=== PATIENT | male | born 1935 | race Caucasian/White ===

== ENCOUNTER 2020-05-13 10:50 | Inpatient (IN) | payer MEDICARE, SELFPAY ==
[2020-05-13] VITALS (9 sets, daily range): BP systolic 119–150; BP diastolic 49–95; PULSE 71–104; RESP 16–39; TEMP 36.7–37.4; O2SAT 93–97
--- NOTE | ~2020-05-13 | XR_ITS ---
EXAMINATION: XR barium swallow modified EXAM DATE: 05/18/2020 13:43 INDICATION: Dysphagia. TECHNIQUE: Modified barium esophagram was performed by myself to administered fluoroscopy, in conjun ction with speech pathologist who administered barium in varying consistencies as per speech patholog ist documentation. This was recorded on tape. The DAP for this procedure was 1.2 Gycm2. FINDINGS: Radiologist present to administer fluoroscopy during procedure. IMPRESSION: Please refer to speech pathologist findings and specific feeding recommendations. Reviewed, dictated and finalized at location A. EMS SUPPORT ENGINEER IMPRESSION: Please refer to speech pathologist findings and specific feeding r ecommendations.
--- NOTE | ~2020-05-13 | US_ITS ---
EXAMINATION: US renal BI DATE: 05/17/2020 16:01 INDICATION: Renal insufficiency TECHNIQUE: Multiple grayscale and Doppler ultrasound images of the kidneys were obtained. COMPARISON: 11/02/2018 FINDINGS: The right kidney measures 10.5 x 6.0 x 4.3 cm. The left kidney measures 11.0 x 5.5 x 6.3 cm . The kidneys demonstrate normal parenchymal echogenicity. There is no hydronephrosis. The bladder is decompressed by Ricks catheter. IMPRESSION: 1. Normal kidneys without hydronephrosis. Reviewed, dictated and finalized at location A. OR INFORMATION SYSTEMS ARCHITECT
--- NOTE | ~2020-05-13 | CT_ITS ---
EXAMINATION: CT abdomen pelvis wo con EXAM DATE: 05/13/2020 12:58 INDICATION: Generalized abdominal pain. TECHNIQUE: Spiral CT of the abdomen and pelvis was performed without contrast. Axial, coronal and s agittal images were reviewed. The dose-length product (DLP) for this examination was 1051.20 mGy-cm. The exposure was tailored according to patient size (auto mA exposure control), and iterative recon struction (ASIR) was used as additional dose reduction technique. Comparison is made to prior examina tion from 11/02/2018, 09/04/2007. FINDINGS: The liver, spleen, adrenal glands and pancreas are unremarkable. There is cholelithiasis w ithin an otherwise unremarkable gallbladder. No evidence of obstructive biliary disease. There is n o nephrolithiasis or hydronephrosis. The prostate is unremarkable. There is a Ricks catheter in the bladder with some mildly dense fluid, could be contrast if patient w as recently injected, or could be blood products. Correlate with urinalysis. Mild diffuse bladder wal l thickening. There is no retroperitoneal or pelvic lymphadenopathy. 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 Moderate scattered aortic arterial sclerosis. Small umbilical and periumbilical fat-containing hernia. The appendix is not positively visualized. There is no pericecal inflammatory change to suggest appe ndicitis. There is small sliding gastroesophageal hiatal hernia. There is expected amount of colon ic stool. No free intraperitoneal gas. There is cardiomegaly. There are no pleural or pericardial effusions. There is left basilar subsegmental atelectasis. There are no osteoblastic or osteolytic lesions identified. Old right rib fractures. IMPRESSION: 1. Dense fluid in bladder. Mild diffuse bladder wall thickening could be acute or chronic cystitis. Correlate with urinalysis. 2. Mildly aneurysmal lower abdominal aorta. Reviewed, dictated and finalized at location B. E AND REGULATOR REPAIRER
--- NOTE | ~2020-05-13 | CT_ITS ---
EXAMINATION: CT brain wo con EXAM DATE: 05/13/2020 12:58 INDICATION: Altered mental status. TECHNIQUE: Spiral CT of the head was performed without contrast. Axial, coronal and sagittal images were reviewed. The dose-length product (DLP) for this examination was 681.00 mGy-cm. The exposure w as tailored according to patient size, and iterative reconstruction (ASIR) was used as additional dos e reduction technique. Comparison is made to prior examination from 08/15/2016. FINDINGS: There is no acute intraparenchymal hemorrhage. No evidence of intraparenchymal brain mass lesion. No evidence of acute infarction. Please note that initial head CT has limited sensitivity f or small or acute infarctions. There our punctate right periventricular and right basal ganglia lacu nighat infarctions. There is moderate periventricular and subcortical hypodensity, nonspecific but prob ably related to small vessel ischemic disease. There is moderate prominence of the sulci and ventri cles related to cerebral atrophy. There is intracranial carotid arteriosclerosis. There are no ext ra-axial collections. There is no mass effect or midline shift. Patient has had bilateral ocular le ns surgery. Soft tissue is unremarkable. The visualized sinuses and mastoid air cells are well aera lucia. IMPRESSION: 1. No acute intracranial findings. 2. Chronic age related findings. 3. 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 Reviewed, dictated and finalized at location B. L COMPANY TRUCK DRIVER
--- NOTE | ~2020-05-13 | XR_ITS ---
EXAMINATION: XR chest 1V portable INDICATION: Altered mental status TECHNIQUE: Portable AP chest at 1148 hours COMPARISON: 11/12/2017 FINDINGS: Linear opacity of the left lung base is consistent with subsegmental atelectasis or scarrin g. No focal airspace opacities are identified. There is no pleural effusion or pneumothorax. Healed b ilateral rib fractures are noted. The cardiomediastinal silhouette is normal. There is advanced osteo arthritis of the shoulders. IMPRESSION: 1. Subsegmental atelectasis or scarring of the left lung base. Reviewed, dictated and finalized at location A. ETCAR MOTORMAN
--- NOTE | ~2020-05-13 | XR_ITS ---
EXAMINATION: XR chest 2V DATE: 05/20/2020 16:52 INDICATION: Atrial fibrillation, hypertension and leukocytosis. TECHNIQUE: frontal and lateral views of the chest were obtained. COMPARISON: Chest radiograph dated 05/13/2020 FINDINGS: Opacities at the bilateral lower lung zones with blunting at the costophrenic angles and posterior spears lci consistent with small bilateral pleural effusions and associated basilar atelectasis and/or pneum onia. No pulmonary edema or pneumothorax. Cardiomegaly. Severe bilateral glenohumeral osteoarthritis. Bridging osteophytes throughout the thoracic spine could be related to either There diffuse idiopath ic skeletal hyperostosis (DISH) or ankylosing spondylitis. IMPRESSION: 1. Small bilateral pleural effusions with bibasilar atelectasis and/or pneumonia. 2. Cardiomegaly. Reviewed, dictated and finalized at location A. AIDE IMPRESSION: 1. Small bilateral pleural effusions with bibasilar atelectasis and/or pneumoni a. 2. Cardiomegaly.
--- NOTE | 2020-05-13 11:16 | ECG_ITS ---
Measurements Intervals [place] Rate: 105 P: [place]: 0 QRS: -11 QRSD: 126 T: 6 QT: 355 QTc: 469 Interpretive Statements SINUS TACHYCARDIA ATRIAL PREMATURE COMPLEX BORDERLINE AV CONDUCTION DELAY RIGHT BUNDLE BRANCH BLOCK BASELINE ARTIFACT- I, II, AVR, AVF, V1-V6 ABNORMAL ECG Electronically Signed On 05-13-2020 11:19:17 REWINDER by Abdulaziz Brown D.O.
[2020-05-13 11:31] LABS: Hematocrit 31.5 % (42.0-52.0); Hemoglobin 10.8 g/dL (14.0-18.0); Mean Corpuscular HGB Conc 34.3 g/dl (32-36); Mean Corpuscular Hemoglobin 34.2 pg (26-34); Mean Corpuscular Volume 99.7 fl (80-100); Mean Platelet Volume 10.5 fl (7.4-10.4); Platelet Count Result 183 k/mm3 (150-375); Red Blood Count 3.16 M/mm3 (4.6-6.20); Red Cell Distribution Width 13.6 % (11.5-14.5); White Blood Count 11.1 K/mm3 (4.5-10.0)
[2020-05-13 11:39] LABS: INR 1.5; Prothrombin Time 18.6 Seconds (11.1-14.7)
[2020-05-13 11:40] LABS: Partial Thromboplastin Time 37.1 SECONDS (22.3-36.8)
[2020-05-13 12:00] LABS: Band Neutrophils Percent 9 % (0-6); Lymphocytes Absolute Manual 1.11 K/mm3 (1.1-4.5); Monocytes Absolute Manual 0.77 K/mm3 (0.1-0.90); Monocytes Percent Manual 7 % (3-9); Neutrophils Absolute Manual 9.21 K/mm3 (1.3-6.7); Neutrophils Percent Manual 74 % (46-73); Platelet Estimate Adequate (Adequate); Total Cells Counted 100
[2020-05-13 12:01] LABS: Alanine Aminotransferase 28 U/L (4-50); Albumin Level 3.5 g/dL (3.5-5.1); Alkaline Phosphatase 72 U/L (38-126); Anion Gap 9 mmol/L (8-16); Aspartate Amino Transferase 112 U/L (17-59); Bilirubin,Total 1.2 mg/dL (0.2-1.3); Blood Urea Nitrogen 36 mg/dL (9-20); Calcium 8.9 mg/dL (8.4-10.2); Carbon Dioxide 22 mmol/L (22-30); Chloride 103 mmol/L (98-107); Estimated Glomerular Filt Rate 38; Glucose 150 mg/dL (75-110); Lactic Acid Reflex 4.7 mmol/L (0.7-2.1); Lipase 12 U/L (23-300); Potassium 4.9 mmol/L (3.4-5.0); Sodium 134 mmol/L (137-145)
[2020-05-13 12:10] LABS: Add Urine Microscopic? YES; RBC Urine >75 /hpf (0-2); WBC Urine >75 /hpf
[2020-05-13] MEDS: LORazepam INJ (*CRX) 2 MG/ML VIAL (12:18)
[2020-05-13 12:21] LABS: Appearance Urine Cloudy (Clear)
[2020-05-13 12:22] LABS: Bilirubin Urine Negative (Negative); Blood Urine 3+ (Negative); Glucose Urine UA 1+ mg/dL (Negative); Ketones Urine Negative (Negative); Leukocyte Esterase Ur 1+ LEU/UL (Negative); Nitrate Urine Negative (Negative); Protein Urine 3+ mg/dL (Negative); Specific Grav Ur 1.016 (1.001-1.035); Urobilinogen Urine Negative mg/dL (<2.0)
--- NOTE | 2020-05-13 12:22 | PC.NURSE ---
vrbo to give pt ativan 1mg ivp x1 per jamil ATKINS
[2020-05-13 12:23] LABS: Color Urine Red (Yellow)
[2020-05-13 12:39] LABS: CRP 33.2 mg/dL (<1.0)
--- NOTE | 2020-05-13 12:46 | ED.AMS ---
HPI - Altered Mental Status General Chief Complaint: Urogenital-Male Stated Complaint: ams Time Seen by Provider: 05/13/20 11:15 Source: RN notes reviewed Mode of arrival: ambulatory Limitations: altered mental status History of Present Illness HPI narrative: An 85-year-old male presents to the emergency department with complaints of altered mental status. On arrival patient was changed to encounter nursing staff noted that his diaper was full of bloody urine. Patient is ANO x0, unable to provide any history. Related Data Home Medications Medication Instructions Recorded Confirmed bimatoprost 0.03 % eye drops 1 drop EACH EYE DAILY 03/26/19 01/14/20 dorzolamide-timolol (PF) 2 %-0.5 % 1 drop EACH EYE Q12H 03/26/19 01/14/20 eye drops in a dropperette multivitamin 1 tablet PO DAILY 03/26/19 01/14/20 polyethylene glycol 3350 17 17 gm PO DAILY 03/26/19 gram/dose oral powder tamsulosin 0.4 mg capsule 0.4 mg PO DAILY 03/26/19 01/14/20 Allergies Allergy/AdvReac Type Severity Reaction Status Date / Time No Known Allergies Allergy Verified 05/13/20 11:31 Review of Systems Review of Systems: ROS unobtainable: Yes unobtainable due to mental status PMFSH Family History Family History Other Family history of arthritis Family history of malignant neoplasm Hypertension Social History Social History Years smoked: 60 Smoking status: Light tobacco smoker Tobacco type: cigars Second hand tobacco smoke exposure: No Alcohol intake: former Substance use: never Gender identity (if verbalized by the patient): Male Exam Narrative: Exam Narrative: GENERAL: Elderly, frail and cachectic appearing male. HEAD: Normocephalic, atraumatic. EYES: PERRLA and EOMI. ENT: Nares clear, no rhinorrhea or epistaxis. Mucous membranes moist. Oropharynx without tonsillar hypertrophy exudate or other lesions. Bilateral TMs pearly de paz nonbulging NECK: Supple. No adenopathy or masses. No carotid bruits or JVD CHEST: Clear to auscultation. No respiratory distress. No wheezes rales or rhonchi, poor quality exam poor respiratory effort HEART: Regular rate and rhythm. No murmur heard. Normal peripheral pulses. ABDOMEN: generalized tenderness with voluntary guarding nondistended, normal active bowel sounds. EXTREMITIES: Normal range of motion. No edema. Ecchymosis noted over the bilateral upper extremities SKIN: Warm, dry, no rash. NEURO: Alert and oriented x0. PSYCH: Clearly altered Course Reevaluation(s) Reevaluation #1: Patient remains to be resting comfortably in his bed. His mentation has not changed. Family is at bedside. They state that he is a little bit worse than usual and his mentation. Time: 13:45 Consultations Consultation #1: Spoke with Tamara nurse practitioner for the urology group. Full details of the patient's presentation, evaluation and work-up were discussed. She states that they are be happy to consult and she will come evaluate the patient soon. Time: 14:00 Consultation #2: Spoke with Renée nurse practitioner for hospitalist service. All details of the patient's presentation and work-up were discussed, she will be admitting the patient. Time: 14:24 Vital Signs Vital signs: Vital Signs Temperature 36.7 C 05/13/20 11:16 Pulse Rate 103 H 05/13/20 11:16 Respiratory Rate 39 H 05/13/20 11:16 Blood Pressure 124/57 L 05/13/20 11:16 Pulse Oximetry 94 05/13/20 11:16 Temperature 36.7 C 05/13/20 11:16 Pulse Rate 88 05/13/20 14:14 Respiratory Rate 16 05/13/20 14:14 Blood Pressure 134/59 L 05/13/20 14:14 Pulse Oximetry 97 05/13/20 14:14 MDM - Altered Mental Status MDM Narrative Medical decision making narrative: In brief this is an 85-year-old male who came into the emergency department with hematuria. He was also found to be altered. Patient was evaluated and work
[2020-05-13 14:46] LABS: Reflex Lactic Acid Yes or No Add Lactic
--- NOTE | 2020-05-13 15:32 | WPDURCON ---
Assessment and Plan Assessment and plan (1) Gross hematuria: Code(s): R31.0 - Gross hematuria Status: Acute Assessment and Plan: Secondary to known prostate cancer/UTI. Continue IV antibiotics, tailor to culture results. Continue CBI until urine clears then wean CBI to off. Will continue to monitor. (2) Prostate cancer: Code(s): C61 - Malignant neoplasm of prostate Status: Acute Urology Consult Note HPI Date Seen: 05/13/20 Requesting Physician: Naomi Arellano MD Primary Care Provider: Deon Fall, Consult Narrative Narrative: Som Serrano is a 85 year old male who presented to the ER for mental status changes. The patient was found to have a bloody diaper. Upon CT scan cystitis was noted and retention. A 3 way posey catheter was placed and CBI was started d/t grossly bloody urine. No clots are noted in the catheter tubing and it is flowing well. A urine culture and blood cultures are pending and UA is suggestive of a UTI, therefore IV antibiotics were started. His WBC is 11.1 and creatinine is 1.70. He is patient of Dr. Kumar who is treated for prostate cancer with q 6 month Eligard injections. His most recent injection was in 12/2019. PSA was stable at that time. Will re-draw a PSA at next OV. Patient is A&O x0 today, he is not responding to voice with eye contact. He is alert with eyes open, but is not aware you are with him. All information was obtained from the chart. Review of Systems Review of Systems: ROS unobtainable: Yes unobtainable due to mental status PMFSH Family History Family History Other Family history of arthritis Family history of malignant neoplasm Hypertension Social History Social History Years smoked: 60 Smoking status: Light tobacco smoker Tobacco type: cigars Second hand tobacco smoke exposure: No Alcohol intake: former Substance use: never Gender identity (if verbalized by the patient): Male Meds Home Medications and Allergies Home Medications Medication Instructions Recorded Confirmed Type bimatoprost 0.03 % eye drops 1 drop EACH EYE DAILY 03/26/19 01/14/20 History dorzolamide-timolol (PF) 2 %-0.5 % 1 drop EACH EYE Q12H 03/26/19 01/14/20 History eye drops in a dropperette multivitamin 1 tablet PO DAILY 03/26/19 01/14/20 History polyethylene glycol 3350 17 17 gm PO DAILY 03/26/19 History gram/dose oral powder tamsulosin 0.4 mg capsule 0.4 mg PO DAILY 03/26/19 01/14/20 History apixaban 2.5 mg tablet 2.5 mg PO BID #60 tablet 06/24/19 01/14/20 Rx amitriptyline 25 mg tablet 25 mg PO .hs #90 tablet 01/14/20 01/14/20 Rx levothyroxine 50 mcg tablet 50 mcg PO DAILY #90 tablet 01/14/20 01/14/20 Rx tramadol 50 mg tablet 50 mg PO BID PRN #60 tablet 05/04/20 Rx Allergies Allergy/AdvReac Type Severity Reaction Status Date / Time No Known Allergies Allergy Verified 05/13/20 11:31 Vital Signs Vital Signs - 24 hr 05/13/20 11:16 05/13/20 12:19 05/13/20 13:36 Temperature 98.0 F Pulse Rate 103 H 86 71 Respiratory Rate 39 H 16 16 Blood Pressure 124/57 L 119/49 L 141/49 H Pulse Oximetry 94 97 97 05/13/20 14:14 05/13/20 15:28 Temperature Pulse Rate 88 92 Respiratory Rate 16 16 Blood Pressure 134/59 L 139/95 H Pulse Oximetry 97 96 Exam Resp: Effort & Inspection: normal respiratory effort Cardio: Rate: regular rate GI: GI Palp: Yes Soft to palpation and No Tenderness to palpation present (GI) : General: Yes no CVA tenderness Urinary Catheter: Urinary Catheter: patent and draining and urine red Extrem: General: no edema Results Labs CBC & Chem 7: 05/13/20 11:23 05/13/20 11:23 Labs: Short CBC 05/13/20 Range/Units 11:23 WBC 11.1 H (4.5-10.0) K/mm3 Hgb 10.8 L (14.0-18.0) g/dL Hct 31.5 L (42.0-52.0) % Plt Count 183 (15
[2020-05-13 15:46] LABS: Lactic Acid 2.7 mmol/L (0.7-2.1)
--- NOTE | 2020-05-13 17:10 | ADMGEN ---
This patient, Som Serrano, was admitted to [facility] Surg Room 325-01. Patient/family oriented to hospital policies and general routines including ID bracelet, bed and alarms, visiting hours, pain management, procedures, bathroom and other care routines, personal items, smoking policy, room service/diet, and visiting hours. Information on how to activate the Rapid Response Team has been discussed. Patient/Family are encouraged to report perceived risks to care and to ask questions if they do not understand what they are told or what they should do.
--- NOTE | 2020-05-13 18:01 | PC.NURSE ---
Pt is unable to
--- NOTE | 2020-05-13 18:02 | PC.NURSE ---
Pt is unable to answer any questions at this time, due to being A&O x 0. Pt is pulling at lines and bladder irrigation tubing. I have called the phone number listed for POA 2x, with no response. Attempting to call pharmacy to get pts medication list. Will complete admission to the best of my ability at this time.
--- NOTE | 2020-05-13 18:03 | PM.IMHP ---
H&P: HPI History of Present Illness Date/Time: 05/13/20 18:03 Chief Complaint: Delirium Narrative: Som Serrano is a 85 year old male to the emergency room due to altered mental status. From what I understand the patient comes from home. It was reported that the patient's diaper was filled with blood when he 1st came to the emergency room. The patient was not able to provide any history and was pretty aggressive. He was alert orientated times 0. When I physically assess some I asked him to open his eyes any help them shut. The family was at bedside earlier. However were not able to get hold of any family members at this time. Urology has been consulted. The ER nurse told me that the patient pulled out his CBI 2 times. And that he is very restless. The patient continues to have a CBI at this time. And it is a pink tinge colar. Ativan in the emergency room and started on ceftriaxone. With radiation and also TURP. Was noted that the patient should continue with CBI into his urine clears. And wean off CBI. The patient is being treated with Eligard injections and his most recent injection was December of 2019. CT scan today shows the old infarction but nothing acute. On the date of service of 05/13/2020. Review of Systems Review of Systems: ROS unobtainable: Yes unobtainable due to mental status PMFSH Past Medical History Medical History (Updated 05/13/20 @ 18:30 by Renée Bustos NP) Atrial fibrillation On anticoagulation therapy Eliquis Bladder stones Glaucoma History of deep vein thrombosis History of stroke With dysarthria X4 Hypertension Prostate cancer Treated with radiation Surgical History Surgical History (Updated 05/13/20 @ 18:16 by Renée Bustos NP) H/O cystoscopy To remove bladder stones H/O transurethral resection of prostate History of appendectomy History of carpal tunnel release History of removal of pigmented skin lesion Family History Family History (Updated 05/13/20 @ 18:18 by Renée Bustos NP) Mother Alzheimer's dementia at the age of 93 Father Metastatic cancer at the age of 87 Sibling Heart disease Sibling Heart disease Other Family history of arthritis Family history of malignant neoplasm Hypertension Social History Social History (Updated 05/13/20 @ 18:20 by Renée Bustos NP) Social History: According to his old records the patient is and was living in his own home. His remote history of smoking and quit approximately 62 years ago. It was noted that the patient smokes cigars. 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 It was noted that the patient lives with the daughter. Years smoked: 60 Smoking status: Light tobacco smoker Tobacco type: cigars Second hand tobacco smoke exposure: No Alcohol intake: former Substance use: never Gender identity (if verbalized by the patient): Male Sexual Orientation (if Verbalized by the Patient): Straight or Heterosexual Meds Home Medications and Allergies Home Medications Medication Instructions Recorded Confirmed Type bimatoprost 0.03 % eye drops 1 drop EACH EYE DAILY 03/26/19 01/14/20 History dorzolamide-timolol (PF) 2 %-0.5 % 1 drop EACH EYE Q12H 03/26/19 01/14/20 History eye drops in a dropperette multivitamin 1 tablet PO DAILY 03/26/19 01/14/20 History polyethylene glycol 3350 17 17 gm PO DAILY 03/26/19 History gram/dose oral powder tamsulosin 0.4 mg capsule 0.4 mg PO DAILY 03/26/19 01/14/20 History apixaban 2.5 mg tablet 2.5 mg PO BID #60 tablet 06/24/19 01/14/20 Rx amitriptyline 25 mg tablet 25 mg PO .hs #90 tablet 01/14/20 01/14/20 Rx levothyroxine 50 mcg tablet 50 mcg PO DAILY #90 tablet 01/14/20 01/14/20 Rx tramadol 50 mg tablet 50 mg PO BID PRN #60 tablet 05/04/20 Rx Allergies Allergy/AdvReac Type Severity Reaction Status Date / Time No Known Allergies Allergy Verified 05/13/20 11:31 Vital Signs Vital Signs
[2020-05-13] MEDS: DORZOLAMIDE/TIMOLOL OPHTH SOL 10 ML BOTTLE 1 DROP EACH EYE (22:28)
[2020-05-13] MEDS: AMITRIPTYLINE HCL 25 MG TABLET PO (22:28)
[2020-05-13] MEDS: LATANOPROST 0.005% OP SOLN 2.5 ML BTL 1 DROP EACH EYE (22:29)
[2020-05-14] VITALS (10 sets, daily range): BP systolic 140–182; BP diastolic 59–78; PULSE 77–96; RESP 18–22; TEMP 36.9–38.9; O2SAT 94–96; BMI 23.6
--- NOTE | 2020-05-14 02:25 | PC.NURSE ---
Call received from grand Maeganson/primary caregiver. Medical history obtained and medications reviewed. Update given.
[2020-05-14] MEDS: LEVOTHYROXINE SODIUM 50 MCG TABLET PO (05:58)
[2020-05-14] MEDS: LORazepam INJ (*CRX) 2 MG/ML VIAL 0.5 MG IV PUSH (06:09)
[2020-05-14 06:34] LABS: Basophils Percent Auto 0.2 % (0.2-1.2); Hematocrit 27.9 % (42.0-52.0); Hemoglobin 9.4 g/dL (14.0-18.0); Immature Granulocyte Absolute 0.06 K/mm3 (0.00-0.031); Immature Granulocyte Percent A 0.6 % (0-0.5); Lymphocytes Percent Auto 7.5 % (18.3-44.2); Mean Corpuscular HGB Conc 33.7 g/dl (32-36); Mean Corpuscular Hemoglobin 33.7 pg (26-34); Mean Platelet Volume 10.2 fl (7.4-10.4); Monocytes Absolute Auto 0.6 K/mm3 (0.1-0.6); Monocytes Percent Auto 5.7 % (2.6-8.5); Neutrophils Absolute Auto 9.1 K/mm3 (1.3-6.7); Platelet Count Result 123 k/mm3 (150-375); Red Blood Count 2.79 M/mm3 (4.6-6.20); Red Cell Distribution Width 13.4 % (11.5-14.5); White Blood Count 10.6 K/mm3 (4.5-10.0)
[2020-05-14 06:44] LABS: Alanine Aminotransferase 43 U/L (4-50); Albumin Level 3.4 g/dL (3.5-5.1); Alkaline Phosphatase 75 U/L (38-126); Anion Gap 5 mmol/L (8-16); Aspartate Amino Transferase 167 U/L (17-59); Bilirubin,Total 0.7 mg/dL (0.2-1.3); Blood Urea Nitrogen 40 mg/dL (9-20); Calcium 8.3 mg/dL (8.4-10.2); Carbon Dioxide 29 mmol/L (22-30); Chloride 104 mmol/L (98-107); Estimated Glomerular Filt Rate 38; Glucose 113 mg/dL (75-110); Magnesium 2.1 mg/dL (1.6-2.3); Potassium 3.9 mmol/L (3.4-5.0); Sodium 138 mmol/L (137-145)
[2020-05-14 07:08] LABS: Anisocytosis 1+ (NORMAL); Hypochromasia 1+ (NORMAL); Microcytosis 1+ (NORMAL); Platelet Estimate Adequate (Adequate)
[2020-05-14 07:46] LABS: Thyroid Stimulating Hormone Reflex 0.493 uIU/mL (0.465-4.68)
[2020-05-14] MEDS: DORZOLAMIDE/TIMOLOL OPHTH SOL 10 ML BOTTLE 1 DROP EACH EYE ×2 (10:19→21:37)
[2020-05-14] MEDS: polyethylene glycoL 3350 17 GM POWD.PACK PO (10:20)
--- NOTE | 2020-05-14 10:47 | PM.IMPN ---
Progress Note: A&P Assessment and Plan (1) Acute delirium: Code(s): R41.0 - Disorientation, unspecified Status: Acute Assessment and Plan: Most likely related to acute metabolic encephalopathy most likely related to UTI blood cultures positive patient was treated with IV antibiotics. CT scan of the head shows chronic stroke CT scan of the abdomen showed aortic aneurysm follow-up with PCP as outpatient Also showed thickened fluid and the urinary bladder (2) Atrial fibrillation: Code(s): I48.91 - Unspecified atrial fibrillation Status: Chronic Assessment and Plan: Patient has been on Eliquis pending medication verification hold Eliquis for now as patient has hematuria. He has also had a history of DVTs in the past. (3) Hypertension: Code(s): I10 - Essential (primary) hypertension Status: Chronic Assessment and Plan: Uncontrolled added IV hydralazine (4) Hypothyroidism: Code(s): E03.9 - Hypothyroidism, unspecified Status: Acute Assessment and Plan: TSH level continue levothyroxine. (5) Pure hypercholesterolemia: Code(s): E78.00 - Pure hypercholesterolemia, unspecified Status: Acute Assessment and Plan: Continue with home medication (6) History of DVT of lower extremity: Code(s): Z86.718 - Personal history of other venous thrombosis and embolism Status: Acute Assessment and Plan: Patient had been on Eliquis and will holding it due to the hematuria. (7) Gross hematuria: Code(s): R31.0 - Gross hematuria Status: Acute Assessment and Plan: Patient has history of prostatic cancer status post TURP and radiation therapy Continue with CBI. Urology has seen the patient. He has a history of prostate cancer. He has been on tamsulosin. Subjective Date/time seen: 05/14/20 10:47 Interval history: Patient seen and examined Patient is confused Patient was admitted to the hospital with altered mental status Hematuria Was found to have positive blood culture Gram-negative bacilli Patient has history of bladder cancer status post TURP And radiation therapy cbi was started urology consulted I am seeing the patient for UTI Review of Systems Review of Systems: ROS unobtainable: Yes unobtainable due to medical condition Exam Narrative: Exam Narrative: Diffuse Chest no wheeze crackles Abdomen nontender nondistended CVS S1 + S2 Negative Lower extremity edema Objective Data Vital Signs Vital Signs: Vital Signs - 24 hr 05/13/20 11:16 05/13/20 12:19 05/13/20 13:36 Temperature 98.0 F Pulse Rate 103 H 86 71 Respiratory Rate 39 H 16 16 Blood Pressure 124/57 L 119/49 L 141/49 H Pulse Oximetry 94 97 97 05/13/20 14:14 05/13/20 15:28 05/13/20 16:13 Temperature Pulse Rate 88 92 88 Respiratory Rate 16 16 16 Blood Pressure 134/59 L 139/95 H 135/76 Pulse Oximetry 97 96 96 05/13/20 17:05 05/13/20 20:00 05/13/20 22:00 Temperature 98.4 F 99.3 F Pulse Rate 97 104 H 96 Respiratory Rate 22 H 20 Blood Pressure 150/72 H Pulse Oximetry 93 96 96 05/14/20 00:00 05/14/20 04:00 05/14/20 06:00 Temperature 98.5 F Pulse Rate 90 82 Respiratory Rate 22 H Blood Pressure 182/62 H Pulse Oximetry Intake/Output Intake/Output: Intake & Output 05/11/20 05/12/20 05/13/20 05/14/20 23:59 23:59 23:59 23:59 Intake Total 50 Output Total 2100 Balance -2049 Meds/Results Medications: Active Medications Generic Name Dose Route Start Last Admin Trade Name Mitch PRN Reason Stop Dose Admin Amitriptyline HCl 25 mg 05/13/20 21:00 05/13/20 22:28 Amitriptyline Hcl 25 Mg Tablet PO 25 mg HS DANE Administration Dorzolamide/Timolol 1 drop 05/13/20 21:00 05/14/20 10:19 Dorzolamide/Timolol Ophth Alysia 10 Ml Bottle EACH EYE 1 drop Q12HR DANE Administration Piperacillin/Tazobactam/Dextrose 3.375 gm in 50 mls @ 100 mls/hr 05/14/20 10:45 Zosyn 3.375 Gm/D5w 50m
[2020-05-14 11:16] LABS: Hematocrit 27.7 % (42.0-52.0); Hemoglobin 9.4 g/dL (14.0-18.0)
[2020-05-14] MEDS: FUROSEMIDE INJ 40 MG/4 ML VIAL IV PUSH (12:39)
--- NOTE | 2020-05-14 14:32 | WPDUROPN2 ---
Progress Note: A&P Assessment and Plan (1) Gross hematuria: Code(s): R31.0 - Gross hematuria Status: Acute Assessment and Plan: Urine culture pending, continue IV antibiotics. Taper CBI to off when urine is clear, if it becomes bloody again, restart CBI. Subjective Subjective Date/Time Seen: 05/14/20 14:32 CBI running on slow, urine is clear this morning. However, after stopping CBI during rounds this morning, around noon his nurse called to report the return of bloody urine. I advised to restart CBI. Review of Systems Review of Systems: ROS unobtainable: Yes unobtainable due to mental status Exam Resp: Effort & Inspection: tachypneic Cardio: Rate: regular rate GI: GI Palp: Yes Soft to palpation and No Tenderness to palpation present (GI) : General: Yes no CVA tenderness Urinary Catheter: Urinary Catheter: patent and draining and urine clear Extrem: General: edema Objective Data Vital Signs Vital Signs: Vital Signs - 24 hr 05/13/20 15:28 05/13/20 16:13 05/13/20 17:05 Temperature 98.4 F Pulse Rate 92 88 97 Respiratory Rate 16 16 22 H Blood Pressure 139/95 H 135/76 Pulse Oximetry 96 96 93 05/13/20 20:00 05/13/20 22:00 05/14/20 00:00 Temperature 99.3 F Pulse Rate 104 H 96 90 Respiratory Rate 20 Blood Pressure 150/72 H Pulse Oximetry 96 96 05/14/20 04:00 05/14/20 06:00 05/14/20 08:00 Temperature 98.5 F Pulse Rate 82 82 Respiratory Rate 22 H 22 H Blood Pressure 182/62 H Pulse Oximetry 96 Intake/Output Intake/Output: Intake & Output 05/11/20 05/12/20 05/13/20 05/14/20 23:59 23:59 23:59 23:59 Intake Total 50 Output Total 2100 Balance -2049 Meds/Results Medications: Active Medications Generic Name Dose Route Start Last Admin Trade Name Freq PRN Reason Stop Dose Admin Amitriptyline HCl 25 mg 05/13/20 21:00 05/13/20 22:28 Amitriptyline Hcl 25 Mg Tablet PO 25 mg HS DANE Administration Dorzolamide/Timolol 1 drop 05/13/20 21:00 05/14/20 10:19 Dorzolamide/Timolol Ophth Alysia 10 Ml Bottle EACH EYE 1 drop Q12HR DANE Administration Hydralazine HCl 10 mg 05/14/20 10:53 Hydralazine Hcl 20 Mg/Ml Vial IV PUSH Q6H PRN Hypertension Piperacillin/Tazobactam/Dextrose 3.375 gm in 50 mls @ 100 mls/hr 05/14/20 10:45 Zosyn 3.375 Gm/D5w 50ml Pm IVPB Q8H DANE Latanoprost 1 drop 05/13/20 21:00 05/13/20 22:29 Latanoprost 0.005% Op Soln 2.5 Ml Btl EACH EYE 1 drop HS DANE Administration Levothyroxine Sodium 50 mcg 05/14/20 06:30 05/14/20 05:58 Levothyroxine Sodium 50 Mcg Tablet PO 50 mcg DAILY@0630 DANE Administration Lorazepam 0.5 mg 05/13/20 18:04 05/14/20 06:09 Lorazepam Inj (*Crx) 2 Mg/Ml Vial IV PUSH 0.5 mg Q6H PRN Administration Anxiety Melatonin 10 mg 05/14/20 21:00 Melatonin 5 Mg Tablet PO HS DANE Multivitamins Therapeutic 1 tablet 05/14/20 09:00 05/14/20 10:29 Multivitamins Therapeutic Tab (*Bkc) PO Not Given DAILY [facility] Polyethylene Glycol 17 gm 05/14/20 09:00 05/14/20 10:20 Polyethylene Glycol 3350 17 Gm Powd.Pack PO 17 gm DAILY DANE Administration Tamsulosin HCl 0.4 mg 05/14/20 09:00 05/14/20 10:29 Tamsulosin Hcl 0.4 Mg Capsule PO Not Given DAILY DANE Tramadol HCl 50 mg 05/13/20 20:54 Tramadol Hcl (*Crx) 50 Mg Tablet PO BID PRN pain Radiology Results: ITS Impressions Chest X-Ray 05/13/20 11:50 IMPRESSION: 1. Subsegmental atelectasis or scarring of the left lung base. Head CT 05/13/20 13:02 IMPRESSION: 1. No acute intracranial findings. 2. Chronic age related findings. 3. 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 Abdomen/Pelvis CT 05/13/20 13:06 IMPRESSION: 1. Dense fluid in bladder. Mild diffuse bladder wall thickening could be acute or chronic cystitis. Correlate with urinalysis. 2. Mildly aneurysmal lower abdominal aorta. Labs Labs: Labora
[2020-05-14] MEDS: MELATONIN 5 MG TABLET 10 MG PO (21:36)
[2020-05-14] MEDS: AMITRIPTYLINE HCL 25 MG TABLET PO (21:36)
[2020-05-14] MEDS: LATANOPROST 0.005% OP SOLN 2.5 ML BTL 1 DROP EACH EYE (21:37)
[2020-05-15] VITALS (7 sets, daily range): BP systolic 126–171; BP diastolic 53–63; PULSE 75–83; RESP 16–18; TEMP 35.7–37.1; O2SAT 92–97
[2020-05-15] MEDS: LEVOTHYROXINE SODIUM 50 MCG TABLET PO (06:33)
[2020-05-15 06:56] LABS: Basophils Percent Auto 0.4 % (0.2-1.2); Eosinophils Percent Auto 0.2 % (0-4.4); Hematocrit 29.6 % (42.0-52.0); Immature Granulocyte Absolute 0.02 K/mm3 (0.00-0.031); Immature Granulocyte Percent A 0.2 % (0-0.5); Lymphocytes Absolute Auto 0.95 K/mm3 (0.9-3.2); Lymphocytes Percent Auto 9.3 % (18.3-44.2); Mean Corpuscular HGB Conc 30.4 g/dl (32-36); Mean Corpuscular Hemoglobin 34.2 pg (26-34); Mean Corpuscular Volume 112.5 fl (80-100); Mean Platelet Volume 10.4 fl (7.4-10.4); Monocytes Absolute Auto 0.6 K/mm3 (0.1-0.6); Monocytes Percent Auto 6.3 % (2.6-8.5); Neutrophils Absolute Auto 8.5 K/mm3 (1.3-6.7); Neutrophils Percent Auto 83.6 % (45.5-73.1); Platelet Count Result 121 k/mm3 (150-375); Red Blood Count 2.63 M/mm3 (4.6-6.20); Red Cell Distribution Width 14.2 % (11.5-14.5); White Blood Count 10.2 K/mm3 (4.5-10.0)
[2020-05-15 07:12] LABS: Alanine Aminotransferase 78 U/L (4-50); Albumin Level 3.3 g/dL (3.5-5.1); Alkaline Phosphatase 92 U/L (38-126); Anion Gap 5 mmol/L (8-16); Aspartate Amino Transferase 176 U/L (17-59); Bilirubin,Total 0.9 mg/dL (0.2-1.3); Blood Urea Nitrogen 47 mg/dL (9-20); Calcium 8.4 mg/dL (8.4-10.2); Carbon Dioxide 26 mmol/L (22-30); Chloride 107 mmol/L (98-107); Estimated CRCL calculation 27 ml/min; Estimated Glomerular Filt Rate 34; Glucose 114 mg/dL (75-110); Potassium 3.4 mmol/L (3.4-5.0); Sodium 138 mmol/L (137-145)
[2020-05-15] MEDS: TAMSULOSIN HCL 0.4 MG CAPSULE PO (09:09)
[2020-05-15] MEDS: MULTIVITAMINS THERAPEUTIC TAB (*BKC) 1 TABLET PO (09:09)
[2020-05-15] MEDS: DORZOLAMIDE/TIMOLOL OPHTH SOL 10 ML BOTTLE 1 DROP EACH EYE ×2 (09:10→20:46)
[2020-05-15] MEDS: polyethylene glycoL 3350 17 GM POWD.PACK PO (09:10)
--- NOTE | 2020-05-15 11:27 | PM.IMPN ---
Progress Note: A&P Assessment and Plan (1) Acute delirium: Code(s): R41.0 - Disorientation, unspecified Status: Acute Assessment and Plan: Most likely related to acute metabolic encephalopathy most likely related to UTI blood cultures positive patient was treated with IV antibiotics. Continue IV Zosyn now CT scan of the head shows chronic stroke CT scan of the abdomen showed aortic aneurysm follow-up with PCP as outpatient Also showed thickened fluid and the urinary bladder (2) Atrial fibrillation: Code(s): I48.91 - Unspecified atrial fibrillation Status: Chronic Assessment and Plan: Patient has been on Eliquis pending medication verification hold Eliquis for now as patient has hematuria. He has also had a history of DVTs in the past. (3) Hypertension: Code(s): I10 - Essential (primary) hypertension Status: Chronic Assessment and Plan: Uncontrolled added IV hydralazine Amlodipine 10 mg daily (4) Hypothyroidism: Code(s): E03.9 - Hypothyroidism, unspecified Status: Acute Assessment and Plan: TSH level continue levothyroxine. (5) Pure hypercholesterolemia: Code(s): E78.00 - Pure hypercholesterolemia, unspecified Status: Acute Assessment and Plan: Continue with home medication (6) History of DVT of lower extremity: Code(s): Z86.718 - Personal history of other venous thrombosis and embolism Status: Acute Assessment and Plan: Patient had been on Eliquis and will holding it due to the hematuria. (7) Gross hematuria: Code(s): R31.0 - Gross hematuria Status: Acute Assessment and Plan: Patient has history of prostatic cancer status post TURP and radiation therapy Continue with CBI. Urology has seen the patient. He has a history of prostate cancer. He has been on tamsulosin Lactic acidosis normal saline bolus continue IV hydration most likely related to sepsis present on admission follow lactic acid. Subjective Date/time seen: 05/15/20 11:27 Interval history: Patient seen and examined Patient is confused Patient was admitted to the hospital with altered mental status Hematuria Was found to have positive blood culture Gram-negative bacilli Patient has history of bladder cancer status post TURP And radiation therapy cbi was started urology consulted Patient has worsening renal function Hypertension uncontrolled Lactic acidosis improved I am seeing the patient for UTI Exam Narrative: Exam Narrative: Diffuse Chest no wheeze crackles Abdomen nontender nondistended CVS S1 + S2 Negative Lower extremity edema Objective Data Vital Signs Vital Signs: Vital Signs - 24 hr 05/14/20 12:00 05/14/20 14:00 05/14/20 14:01 Temperature 99.9 F H 102.1 F H Pulse Rate 77 96 Respiratory Rate 20 Blood Pressure 140/78 Pulse Oximetry 94 05/14/20 16:00 05/14/20 20:00 05/14/20 22:00 Temperature 98.9 F Pulse Rate 91 92 86 Respiratory Rate 18 Blood Pressure 161/59 H Pulse Oximetry 95 95 05/15/20 00:00 05/15/20 04:00 05/15/20 06:00 Temperature 97.1 F L Pulse Rate 80 83 79 Respiratory Rate 18 Blood Pressure 154/62 H Pulse Oximetry 94 05/15/20 08:00 Temperature 97.6 F Pulse Rate 78 Respiratory Rate 18 Blood Pressure 171/63 H Pulse Oximetry 97 Intake/Output Intake/Output: Intake & Output 05/12/20 05/13/20 05/14/20 05/15/20 23:59 23:59 23:59 23:59 Intake Total 50 20 600 Output Total 2100 1321 [id number] [facility]2050 -[id number] -[id number] Meds/Results Medications: Active Medications Generic Name Dose Route Start Last Admin Trade Name Freq PRN Reason Stop Dose Admin Acetaminophen 325 mg 05/14/20 14:58 Acetaminophen 325 Mg Tablet PO Q6H PRN Mild Pain (1-3) or Fever Amitriptyline HCl 25 mg 05/13/20 21:00 05/14/20 21:36 Amitriptyline Hcl 25 Mg Tablet PO 25 mg HS DANE Administration Amlodipine Besylate 10 mg 05/16/20 09:00
[2020-05-15] MEDS: amLODIPine BESYLATE 5 MG TABLET 10 MG PO (12:01)
[2020-05-15] MEDS: SODIUM CHLORIDE 0.9% IV 1,000 ML 75 ML IV CONT (12:01)
[2020-05-15 12:45] LABS: Hematocrit 26.4 % (42.0-52.0); Hemoglobin 9.1 g/dL (14.0-18.0)
[2020-05-15 12:55] LABS: Lactic Acid Reflex 1.4 mmol/L (0.7-2.1)
[2020-05-15] MEDS: SODIUM CHLORIDE 0.9% IV 500 ML IV CONT (13:00)
--- NOTE | 2020-05-15 16:19 | WPDUROPN2 ---
Progress Note: A&P Assessment and Plan (1) Gross hematuria: Code(s): R31.0 - Gross hematuria Status: Acute Additional Plan Keep CBI off as long as urine stays clear. Voiding trial once becomes more alert. Subjective Subjective Date/Time Seen: 05/15/20 16:19 Principal diagnosis: Gross hematuria Interval history: Urine appears clear with CBI off. CT scan without any significant clot present. Review of Systems Review of Systems: All systems reviewed & are unremarkable except as noted in HPI and below Exam GI: Inspection: non-distended Objective Data Vital Signs Vital Signs: Vital Signs - 24 hr 05/14/20 20:00 05/14/20 22:00 05/15/20 00:00 Temperature 37.2 C Pulse Rate 92 86 80 Respiratory Rate 18 Blood Pressure 161/59 H Pulse Oximetry 95 95 05/15/20 04:00 05/15/20 06:00 05/15/20 08:00 Temperature 36.2 C L 36.4 C Pulse Rate 83 79 78 Respiratory Rate 18 18 Blood Pressure 154/62 H 171/63 H Pulse Oximetry 94 97 05/15/20 12:00 Temperature 35.7 C L Pulse Rate 77 Respiratory Rate 16 Blood Pressure 149/53 H Pulse Oximetry 96 Intake/Output Intake/Output: Intake & Output 05/12/20 05/13/20 05/14/20 05/15/20 23:59 23:59 23:59 23:59 Intake Total 50 20 600 Output Total 2100 1575 18308 Balance -0490 -3039 -29016 Meds/Results Medications: Active Medications Generic Name Dose Route Start Last Admin Trade Name Freq PRN Reason Stop Dose Admin Acetaminophen 325 mg 05/14/20 14:58 Acetaminophen 325 Mg Tablet PO Q6H PRN Mild Pain (1-3) or Fever Amitriptyline HCl 25 mg 05/13/20 21:00 05/14/20 21:36 Amitriptyline Hcl 25 Mg Tablet PO 25 mg HS DANE Administration Amlodipine Besylate 10 mg 05/15/20 11:30 05/15/20 12:01 Amlodipine Besylate 5 Mg Tablet PO 10 mg QAM DANE Administration Dorzolamide/Timolol 1 drop 05/13/20 21:00 05/15/20 09:10 Dorzolamide/Timolol Ophth Alysia 10 Ml Bottle EACH EYE 1 drop Q12HR DANE Administration Hydralazine HCl 10 mg 05/14/20 10:53 Hydralazine Hcl 20 Mg/Ml Vial IV PUSH Q6H PRN Hypertension Acetaminophen 500 mg in 50 mls @ 200 mls/hr 05/14/20 16:22 Ofirmev 500 Mg Ivpb IVPB 05/15/20 16:23 Q6H PRN Pain or Fever Piperacillin Sod/Tazobactam Sod 2.25 gm in 50 mls @ 100 mls/hr 05/15/20 09:00 05/15/20 09:40 Zosyn 2.25 Gm/D5w 50 Ml IVPB Infused Q6H DANE Infusion Sodium Chloride 1,000 mls @ 75 mls/hr 05/15/20 11:30 05/15/20 12:01 Normal Saline Iv IV CONT 75 mls/hr .[id number] DANE Administration Latanoprost 1 drop 05/13/20 21:00 05/14/20 21:37 Latanoprost 0.005% Op Soln 2.5 Ml Btl EACH EYE 1 drop HS DANE Administration Levothyroxine Sodium 50 mcg 05/14/20 06:30 05/15/20 06:33 Levothyroxine Sodium 50 Mcg Tablet PO 50 mcg DAILY@0630 DANE Administration Lorazepam 0.5 mg 05/13/20 18:04 05/14/20 06:09 Lorazepam Inj (*Crx) 2 Mg/Ml Vial IV PUSH 0.5 mg Q6H PRN Administration Anxiety Melatonin 10 mg 05/14/20 21:00 05/14/20 21:36 Melatonin 5 Mg Tablet PO 10 mg HS DANE Administration Multivitamins Therapeutic 1 tablet 05/14/20 09:00 05/15/20 09:09 Multivitamins Therapeutic Tab (*Bkc) PO 1 tablet DAILY DANE Administration Polyethylene Glycol 17 gm 05/14/20 09:00 05/15/20 09:10 Polyethylene Glycol 3350 17 Gm Powd.Pack PO 17 gm DAILY DANE Administration Tamsulosin HCl 0.4 mg 05/14/20 09:00 05/15/20 09:09 Tamsulosin Hcl 0.4 Mg Capsule PO 0.4 mg DAILY DANE Administration Tramadol HCl 50 mg 05/13/20 20:54 Tramadol Hcl (*Crx) 50 Mg Tablet PO BID PRN pain Radiology Results: ITS Impressions Chest X-Ray 05/13/20 11:50 IMPRESSION: 1. Subsegmental atelectasis or scarring of the left lung base. Head CT 05/13/20 13:02 IMPRESSION: 1. No acute intracranial findings. 2. Chronic age related findings. 3. 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 Abdomen/P
[2020-05-15] MEDS: AMITRIPTYLINE HCL 25 MG TABLET PO (20:46)
[2020-05-15] MEDS: MELATONIN 5 MG TABLET 10 MG PO (20:46)
[2020-05-15] MEDS: LATANOPROST 0.005% OP SOLN 2.5 ML BTL 1 DROP EACH EYE (20:46)
[2020-05-16 06:00] VITALS: BP 98/76; PULSE 104; RESP 18; TEMP 36.1; O2SAT 90
[2020-05-16 06:59] LABS: Basophils Percent Auto 0.4 % (0.2-1.2); Eosinophils Absolute Auto 0.1 K/mm3 (0-0.3); Eosinophils Percent Auto 1.3 % (0-4.4); Hematocrit 28.4 % (42.0-52.0); Hemoglobin 9.6 g/dL (14.0-18.0); Immature Granulocyte Absolute 0.08 K/mm3 (0.00-0.031); Immature Granulocyte Percent A 0.7 % (0-0.5); Lymphocytes Absolute Auto 0.88 K/mm3 (0.9-3.2); Lymphocytes Percent Auto 8.1 % (18.3-44.2); Mean Corpuscular HGB Conc 33.8 g/dl (32-36); Mean Corpuscular Hemoglobin 34.2 pg (26-34); Mean Corpuscular Volume 101.1 fl (80-100); Mean Platelet Volume 10.7 fl (7.4-10.4); Monocytes Absolute Auto 1.1 K/mm3 (0.1-0.6); Monocytes Percent Auto 9.7 % (2.6-8.5); Neutrophils Absolute Auto 8.7 K/mm3 (1.3-6.7); Neutrophils Percent Auto 79.8 % (45.5-73.1); Platelet Count Result 132 k/mm3 (150-375); Red Blood Count 2.81 M/mm3 (4.6-6.20); White Blood Count 10.9 K/mm3 (4.5-10.0)
[2020-05-16 07:24] LABS: Alanine Aminotransferase 179 U/L (4-50); Alkaline Phosphatase 103 U/L (38-126); Anion Gap 2 mmol/L (8-16); Aspartate Amino Transferase 338 U/L (17-59); Bilirubin,Total 1.1 mg/dL (0.2-1.3); Blood Urea Nitrogen 40 mg/dL (9-20); Calcium 7.9 mg/dL (8.4-10.2); Carbon Dioxide 27 mmol/L (22-30); Chloride 107 mmol/L (98-107); Estimated CRCL calculation 30 ml/min; Estimated Glomerular Filt Rate 38; Glucose 140 mg/dL (75-110); Potassium 3.4 mmol/L (3.4-5.0); Sodium 136 mmol/L (137-145)
[2020-05-16 08:29] VITALS: BP 92/48; PULSE 91; RESP 18; O2SAT 94
[2020-05-16 08:31] VITALS: BP 113/72
[2020-05-16] MEDS: amLODIPine BESYLATE 5 MG TABLET 10 MG PO (08:32)
[2020-05-16] MEDS: MULTIVITAMINS THERAPEUTIC TAB (*BKC) 1 TABLET PO (08:33)
[2020-05-16] MEDS: DORZOLAMIDE/TIMOLOL OPHTH SOL 10 ML BOTTLE 1 DROP EACH EYE ×2 (08:33→21:00)
[2020-05-16] MEDS: polyethylene glycoL 3350 17 GM POWD.PACK PO (08:34)
[2020-05-16] MEDS: TAMSULOSIN HCL 0.4 MG CAPSULE PO (08:34)
[2020-05-16 08:40] LABS: Add Urine Microscopic? YES; Appearance Urine Cloudy (Clear); Bacteria Urine 1+ /hpf; Bilirubin Urine Negative (Negative); Blood Urine 3+ (Negative); Glucose Urine UA Negative (Negative); Ketones Urine Negative (Negative); Leukocyte Esterase Ur 3+ LEU/UL (Negative); Mucus Urine Rare /lpf; Nitrate Urine Negative (Negative); Protein Urine 2+ mg/dL (Negative); RBC Urine >75 /hpf (0-2); WBC Urine >75 /hpf
[2020-05-16 08:46] LABS: Color Urine Brown (Yellow)
[2020-05-16] MEDS: LEVOTHYROXINE SODIUM 50 MCG TABLET PO (10:34)
[2020-05-16 10:58] LABS: Hemoglobin 8.4 g/dL (14.0-18.0)
[2020-05-16] MEDS: SODIUM CHLORIDE 0.9% IV 1,000 ML 75 ML IV CONT (13:13)
--- NOTE | 2020-05-16 13:15 | PM.IMPN ---
Progress Note: A&P Assessment and Plan (1) UTI due to Klebsiella species: Code(s): N39.0 - Urinary tract infection, site not specified; B96.89 - Other specified bacterial agents as the cause of diseases classified elsewhere Status: Acute Assessment and Plan: Klebsiella oxytoca, sensitive to ceftriaxone Day 4 antibioics (2) Bacteremia due to Gram-negative bacteria: Code(s): R78.81 - Bacteremia Status: Acute Assessment and Plan: Klebsiella oxytoca, sensitive to ceftriaxone (3) Gross hematuria: Code(s): R31.0 - Gross hematuria Status: Acute Assessment and Plan: Patient has history of prostatic cancer status post TURP and radiation therapy Continue with CBI. Urology has seen the patient. He has a history of prostate cancer. He has been on tamsulosin (4) Acute delirium: Code(s): R41.0 - Disorientation, unspecified Status: Acute Assessment and Plan: Most likely related to acute metabolic encephalopathy most likely related to UTI blood cultures positive patient was treated with IV antibiotics. Klebsiella oxytoca in blood and urine sensitive to ceftriaxone, so 05/[address] scan of the head shows chronic stroke CT scan of the abdomen showed aortic aneurysm follow-up with PCP as outpatient Also showed thickened fluid and the urinary bladder (5) Atrial fibrillation: Qualifiers: Atrial fibrillation type: unspecified Qualified Code(s): I48.91 - Unspecified atrial fibrillation Code(s): I48.91 - Unspecified atrial fibrillation Status: Chronic Assessment and Plan: Patient has been on Eliquis pending medication verification hold Eliquis for now as patient has hematuria. He has also had a history of DVTs in the past. (6) Hypertension: Qualifiers: Hypertension type: unspecified Qualified Code(s): I10 - Essential (primary) hypertension Code(s): I10 - Essential (primary) hypertension Status: Chronic Assessment and Plan: Uncontrolled added IV hydralazine Amlodipine 10 mg daily (7) Hypothyroidism: Qualifiers: Hypothyroidism type: unspecified Qualified Code(s): E03.9 - Hypothyroidism, unspecified Code(s): E03.9 - Hypothyroidism, unspecified Status: Acute Assessment and Plan: TSH level continue levothyroxine. (8) Pure hypercholesterolemia: Code(s): E78.00 - Pure hypercholesterolemia, unspecified Status: Acute Assessment and Plan: Continue with home medication (9) History of DVT of lower extremity: Code(s): Z86.718 - Personal history of other venous thrombosis and embolism Status: Acute Assessment and Plan: Patient had been on Eliquis and will holding it due to the hematuria. Subjective Date/time seen: 05/16/20 13:15 Interval history: Admitted due to confusion and found to have altered mental status. 05/16: Denied pain. Review of Systems Review of Systems: ROS unobtainable: Yes unobtainable due to mental status Exam Narrative: Exam Narrative: HEENT:PERRL, sclerae nonicteric, pharyngeal mucosa pink and intact NECK: No JVD CHEST: Few bilateral basilar crackles. Normal effort. HEART: NL S1/S2, regular, no murmur ABDOMEN: BS+, soft, nontender, no mass, no bruits EXTREMITIES: No cyanosis, edema, or clubbing NEUROLOGIC: CN intact and symmetric to inspection. MUSCULOSKELETAL: Tone and strength symmetric. PSYCH: Alert. Oriented to person only, but pleasant. Objective Data Vital Signs Vital Signs: Vital Signs - 24 hr 05/15/20 16:00 05/15/20 21:55 05/16/20 06:00 Temperature 98.8 F 97.3 F L 96.9 F L Pulse Rate 83 80 104 H Respiratory Rate 18 18 18 Blood Pressure 144/56 H 126/58 L 98/76 L Pulse Oximetry 92 95 90 05/16/20 08:29 05/16/20 08:31 Temperature Pulse Rate 91 Respiratory Rate 18 Blood Pressure 92/48 L 113/72 Pulse Oximetry 94 Intake/Output Intake/Output: Intake & Output 01
[2020-05-16 14:00] VITALS: BP 94/49; PULSE 100; RESP 18; TEMP 36.9; O2SAT 92
[2020-05-16 20:00] VITALS: O2SAT 92
[2020-05-16] MEDS: MELATONIN 5 MG TABLET 10 MG PO (21:00)
[2020-05-16] MEDS: LATANOPROST 0.005% OP SOLN 2.5 ML BTL 1 DROP EACH EYE (21:00)
[2020-05-16 22:00] VITALS: BP 130/67; PULSE 123; RESP 20; TEMP 36.6; O2SAT 92
[2020-05-17] MEDS: SODIUM CHLORIDE 0.9% IV 1,000 ML 75 ML IV CONT (03:22)
--- NOTE | 2020-05-17 04:22 | PC.NURSE ---
2000: UPON ROUNDS, PT NC D/C'D OFF BY PT. RA SpO2 92%. IVs DC'D BY PT.
[2020-05-17] MEDS: LEVOTHYROXINE SODIUM 50 MCG TABLET PO (05:25)
[2020-05-17 06:00] VITALS: BP 115/59; PULSE 77; RESP 20; TEMP 36.7; O2SAT 94
[2020-05-17 07:36] LABS: Basophils Absolute Auto 0.1 K/mm3 (0.0-0.1); Basophils Percent Auto 0.4 % (0.2-1.2); Eosinophils Absolute Auto 0.2 K/mm3 (0-0.3); Eosinophils Percent Auto 1.3 % (0-4.4); Hematocrit 23.7 % (42.0-52.0); Hemoglobin 7.9 g/dL (14.0-18.0); Immature Granulocyte Absolute 0.14 K/mm3 (0.00-0.031); Lymphocytes Absolute Auto 1.26 K/mm3 (0.9-3.2); Lymphocytes Percent Auto 9.2 % (18.3-44.2); Mean Corpuscular HGB Conc 33.3 g/dl (32-36); Mean Corpuscular Hemoglobin 34.2 pg (26-34); Mean Corpuscular Volume 102.6 fl (80-100); Mean Platelet Volume 11.1 fl (7.4-10.4); Monocytes Absolute Auto 1.3 K/mm3 (0.1-0.6); Monocytes Percent Auto 9.5 % (2.6-8.5); Neutrophils Absolute Auto 10.7 K/mm3 (1.3-6.7); Neutrophils Percent Auto 78.6 % (45.5-73.1); Platelet Count Result 189 k/mm3 (150-375); Red Blood Count 2.31 M/mm3 (4.6-6.20); Red Cell Distribution Width 14.6 % (11.5-14.5); White Blood Count 13.6 K/mm3 (4.5-10.0)
[2020-05-17 07:48] LABS: Alanine Aminotransferase 155 U/L (4-50); Albumin Level 3.1 g/dL (3.5-5.1); Alkaline Phosphatase 117 U/L (38-126); Anion Gap 4 mmol/L (8-16); Aspartate Amino Transferase 189 U/L (17-59); Bilirubin,Total 1.1 mg/dL (0.2-1.3); Blood Urea Nitrogen 43 mg/dL (9-20); Calcium 7.9 mg/dL (8.4-10.2); Carbon Dioxide 25 mmol/L (22-30); Chloride 108 mmol/L (98-107); Estimated CRCL calculation 28 ml/min; Estimated Glomerular Filt Rate 36; Glucose 119 mg/dL (75-110); Magnesium 2.1 mg/dL (1.6-2.3); Phosphorus 3.7 mg/dL (2.5-4.5); Potassium 3.3 mmol/L (3.4-5.0); Sodium 137 mmol/L (137-145)
[2020-05-17] MEDS: TAMSULOSIN HCL 0.4 MG CAPSULE PO (08:06)
[2020-05-17] MEDS: MULTIVITAMINS THERAPEUTIC TAB (*BKC) 1 TABLET PO (08:07)
[2020-05-17] MEDS: DORZOLAMIDE/TIMOLOL OPHTH SOL 10 ML BOTTLE 1 DROP EACH EYE ×2 (08:07→21:25)
[2020-05-17] MEDS: amLODIPine BESYLATE 5 MG TABLET 10 MG PO (08:07)
[2020-05-17] MEDS: polyethylene glycoL 3350 17 GM POWD.PACK PO (08:07)
[2020-05-17 10:54] LABS: Hematocrit 22.1 % (42.0-52.0); Hemoglobin 7.5 g/dL (14.0-18.0)
[2020-05-17 14:00] VITALS: BP 142/62; PULSE 79; RESP 20; TEMP 37; O2SAT 94
--- NOTE | 2020-05-17 14:46 | PM.IMPN ---
Progress Note: A&P Assessment and Plan (1) Sepsis due to Klebsiella: Code(s): A41.4 - Sepsis due to anaerobes Status: Acute Assessment and Plan: Sepsis with septicemia present on admission. Lactic acid and WBC elevated on admission. Developed fever to 102. Blood and urine cultures growing Klebsiella oxytoca sensitive to ceftriaxone. Initially treated with Zosyn but changed to Rocephin 05/16 (dose increased today). LFTs elevated but better today. Related to the sepsis? Will follow. Continue IV abx. Increased activity. Voiding trial when able. (2) UTI due to Klebsiella species: Code(s): N39.0 - Urinary tract infection, site not specified; B96.89 - Other specified bacterial agents as the cause of diseases classified elsewhere Status: Acute Assessment and Plan: Klebsiella oxytoca, sensitive to ceftriaxone. Continue Rocephin. (3) Gross hematuria: Code(s): R31.0 - Gross hematuria Status: Acute Assessment and Plan: Patient has history of prostatic cancer status post TURP and radiation therapy. Presents with AMS and gross hematuria. CT Abd/Pelvis showing dense fluid in bladder with mild diffuse bladder wall thickening. Treated with a CBI. Urology following. CBI weaned off now. Continue Ricks. Continue tamsulosin. (4) Acute delirium: Code(s): R41.0 - Disorientation, unspecified Status: Acute Assessment and Plan: Acute metabolic encephalopathy most likely related to UTI with with Klebsiella oxytoca in blood and urine sensitive to ceftriaxone. Changed to Rocephin 05/16 and dose increased to 2gm on today. CT scan of the head shows chronic stroke. Appears better. Continue to monitor. Increase activity. Speech therapy consult to try to advance diet. (5) Atrial fibrillation: Qualifiers: Atrial fibrillation type: unspecified Qualified Code(s): I48.91 - Unspecified atrial fibrillation Code(s): I48.91 - Unspecified atrial fibrillation Status: Chronic Assessment and Plan: Patient came in on Eliquis but on hold due to hematuria. HR controlled. Resume Eliquis when okay with urology. (6) Hypertension: Qualifiers: Hypertension type: unspecified Qualified Code(s): I10 - Essential (primary) hypertension Code(s): I10 - Essential (primary) hypertension Status: Chronic Assessment and Plan: BP reviewed on 1/18. BP well controlled. Continue Amlodipine (7) Hypothyroidism: Qualifiers: Hypothyroidism type: unspecified Qualified Code(s): E03.9 - Hypothyroidism, unspecified Code(s): E03.9 - Hypothyroidism, unspecified Status: Acute Assessment and Plan: TSH level normal. Continue levothyroxine. (8) History of DVT of lower extremity: Code(s): Z86.718 - Personal history of other venous thrombosis and embolism Status: Acute Assessment and Plan: Patient had been on Eliquis but on hold due to the hematuria. (9) Anemia: Code(s): D64.9 - Anemia, unspecified Status: Acute Assessment and Plan: Hgb has drifted down to 7.9 today. 7.5 on repeat. Suspect patietn with chronic anemia and acute component from the gross hematuria. Could also have a dilutional component since on IV fluids. MCV elevated so will check B12 level. Add iron studies. (10) Renal insufficiency: Code(s): N28.9 - Disorder of kidney and ureter, unspecified Status: Acute Assessment and Plan: Creatinine elevated but stable. Old values from 2019 were normal. Check renal US. Follow. Stop IV fluids and monitor. Check total CK. (11) Elevated LFTs: Code(s): R79.89 - Other specified abnormal findings of blood chemistry Status: Acute Assessment and Plan: As above. Probably related to sepsis. Follow. Subjective Date/time seen: 05/17/20 14:46 Interval history: 85yo male here wi
--- NOTE | 2020-05-17 15:49 | PCSTNOTE ---
The patient treatment was not able to be completed on 05/17/20 due to leaving for ultrasound at the same time therapist was available for Bedside Swallow Evaluation. Will plan to evaluate patient tomorrow, 05/18/20.
[2020-05-17 18:34] LABS: Hematocrit 23.1 % (42.0-52.0); Hemoglobin 7.8 g/dL (14.0-18.0)
[2020-05-17 20:00] VITALS: BP 137/64; PULSE 74; RESP 16; TEMP 36.8; O2SAT 94
[2020-05-17] MEDS: LATANOPROST 0.005% OP SOLN 2.5 ML BTL 1 DROP EACH EYE (21:25)
[2020-05-17] MEDS: MELATONIN 5 MG TABLET 10 MG PO (21:26)
[2020-05-18 00:30] LABS: Hematocrit 21.6 % (42.0-52.0); Hemoglobin 7.2 g/dL (14.0-18.0)
[2020-05-18 06:00] VITALS: BP 147/57; PULSE 62; RESP 18; TEMP 36.2; O2SAT 94
[2020-05-18] MEDS: LEVOTHYROXINE SODIUM 50 MCG TABLET PO (06:18)
[2020-05-18 06:22] LABS: Hematocrit 22.2 % (42.0-52.0); Hemoglobin 7.5 g/dL (14.0-18.0); Mean Corpuscular HGB Conc 33.8 g/dl (32-36); Mean Corpuscular Hemoglobin 33.9 pg (26-34); Mean Corpuscular Volume 100.5 fl (80-100); Mean Platelet Volume 10.9 fl (7.4-10.4); Platelet Count Result 210 k/mm3 (150-375); Red Blood Count 2.21 M/mm3 (4.6-6.20); Red Cell Distribution Width 14.7 % (11.5-14.5); White Blood Count 14.2 K/mm3 (4.5-10.0)
[2020-05-18 06:38] LABS: Ammonia < 9 umol/L (9-30)
[2020-05-18 06:58] LABS: Alanine Aminotransferase 131 U/L (4-50); Albumin Level 2.9 g/dL (3.5-5.1); Alkaline Phosphatase 107 U/L (38-126); Anion Gap 2 mmol/L (8-16); Aspartate Amino Transferase 128 U/L (17-59); Bilirubin,Total 0.7 mg/dL (0.2-1.3); Blood Urea Nitrogen 36 mg/dL (9-20); Carbon Dioxide 28 mmol/L (22-30); Chloride 108 mmol/L (98-107); Complement C3 117 mg/dL (88-165); Creatine Kinase 247 U/L (55-170); Estimated CRCL calculation 31 ml/min; Estimated Glomerular Filt Rate 41; Glucose 116 mg/dL (75-110); Potassium 3.4 mmol/L (3.4-5.0); Sodium 138 mmol/L (137-145)
[2020-05-18 07:07] LABS: Iron 27 ug/dL (49-181)
[2020-05-18 07:19] LABS: Percent Iron Saturation 13 % (20-50)
[2020-05-18 07:34] LABS: Hepatitis B Surface Antigen Negative (Negative)
[2020-05-18 07:40] LABS: HAV RESULT Negative (Negative); Hepatitis B Core IgM Result Negative (Negative)
[2020-05-18 07:47] LABS: Folic Acid > 20.0 ng/mL (2.76->20); Vitamin B12 > 1000.0 pg/mL (239-931)
[2020-05-18 07:51] LABS: Hepatitis C Virus Antibody Negative (Negative)
--- NOTE | 2020-05-18 08:53 | WPDUROPN2 ---
Progress Note: A&P Assessment and Plan (1) Gross hematuria: Code(s): R31.0 - Gross hematuria Status: Acute Assessment and Plan: Resolved. Ok to remove posey and perform voiding trial. Call with bladder scan results after first void. No further evaluation at this time. Subjective Subjective Date/Time Seen: 05/18/20 08:53 Gross Hematuria resolved several days ago, off CBI. He is much more alert today and oriented. Initially Klebsiella was growing, but a repeat urine culture from 05/16/2020 is negative. Review of Systems Cardiovascular: Cardiovascular: Denies chest pain Respiratory: Respiratory: Reports no additional respiratory complaints Gastrointestinal: Gastrointestinal: Denies nausea and Denies vomiting Genitourinary: Genitourinary: Denies hematuria and Denies flank pain Exam Cardio: Rate: regular rate GI: GI Palp: Yes Soft to palpation and No Tenderness to palpation present (GI) : General: Yes no CVA tenderness Urinary Catheter: Urinary Catheter: patent and draining and urine dark Extrem: General: no edema Objective Data Vital Signs Vital Signs: Vital Signs - 24 hr 05/17/20 14:00 05/17/20 20:00 05/18/20 06:00 Temperature 98.6 F 98.2 F 97.2 F L Pulse Rate 79 74 62 Respiratory Rate 20 16 18 Blood Pressure 142/62 H 137/64 147/57 H Pulse Oximetry 94 94 94 Intake/Output Intake/Output: Intake & Output 05/15/20 05/16/20 05/17/20 05/18/20 23:59 23:59 23:59 23:59 Intake Total 1090 2110 2700 600 Output Total 91331 3250 700 1000 Balance -51777 -1140 1999 - Meds/Results Medications: Active Medications Generic Name Dose Route Start Last Admin Trade Name Freq PRN Reason Stop Dose Admin Acetaminophen 325 mg 05/14/20 14:58 Acetaminophen 325 Mg Tablet PO Q6H PRN Mild Pain (1-3) or Fever Amlodipine Besylate 10 mg 05/15/20 11:30 05/17/20 08:07 Amlodipine Besylate 5 Mg Tablet PO 10 mg QAM DANE Administration Dorzolamide/Timolol 1 drop 05/13/20 21:00 05/17/20 21:25 Dorzolamide/Timolol Ophth Alysia 10 Ml Bottle EACH EYE 1 drop Q12HR DANE Administration Hydralazine HCl 10 mg 05/14/20 10:53 Hydralazine Hcl 20 Mg/Ml Vial IV PUSH Q6H PRN Hypertension Ceftriaxone Sodium 2 gm in 100 mls @ 200 mls/hr 05/17/20 09:00 05/17/20 08:36 Rocephin 2 Gm/D5w 100 Ml IVPB Infused Q24H DANE Infusion Latanoprost 1 drop 05/13/20 21:00 05/17/20 21:25 Latanoprost 0.005% Op Soln 2.5 Ml Btl EACH EYE 1 drop HS DANE Administration Levothyroxine Sodium 50 mcg 05/14/20 06:30 05/18/20 06:18 Levothyroxine Sodium 50 Mcg Tablet PO 50 mcg DAILY@0630 DANE Administration Lorazepam 0.5 mg 05/13/20 18:04 05/14/20 06:09 Lorazepam Inj (*Crx) 2 Mg/Ml Vial IV PUSH 0.5 mg Q6H PRN Administration Anxiety Melatonin 10 mg 05/14/20 21:00 05/17/20 21:26 Melatonin 5 Mg Tablet PO 10 mg HS DANE Administration Multivitamins Therapeutic 1 tablet 05/14/20 09:00 05/17/20 08:07 Multivitamins Therapeutic Tab (*Bkc) PO 1 tablet DAILY DANE Administration Polyethylene Glycol 17 gm 05/14/20 09:00 05/17/20 08:07 Polyethylene Glycol 3350 17 Gm Powd.Pack PO 17 gm DAILY DANE Administration Tamsulosin HCl 0.4 mg 05/14/20 09:00 05/17/20 08:06 Tamsulosin Hcl 0.4 Mg Capsule PO 0.4 mg DAILY DANE Administration Radiology Results: ITS Impressions Chest X-Ray 05/13/20 11:50 IMPRESSION: 1. Subsegmental atelectasis or scarring of the left lung base. Head CT 05/13/20 13:02 IMPRESSION: 1. No acute intracranial findings. 2. Chronic age related findings. 3. 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 Abdomen/Pelvis CT 05/13/20 13:06 IMPRESSION: 1. Dense fluid in bladder. Mild diffuse bladder wall thickening could be acute or chronic cystitis. Correlate with urinalysis. 2. Mildly aneurysmal lower abdominal aorta. Renal Ultrasound 05/17/20 16:02 IMPRESSION: 1.
[2020-05-18] MEDS: POTASSIUM CHLORIDE 20 MEQ TABLET PO (09:12)
[2020-05-18] MEDS: amLODIPine BESYLATE 5 MG TABLET 10 MG PO (09:12)
[2020-05-18] MEDS: TAMSULOSIN HCL 0.4 MG CAPSULE PO (09:13)
[2020-05-18] MEDS: DORZOLAMIDE/TIMOLOL OPHTH SOL 10 ML BOTTLE 1 DROP EACH EYE ×2 (09:13→20:08)
[2020-05-18] MEDS: MULTIVITAMINS THERAPEUTIC TAB (*BKC) 1 TABLET PO (09:15)
--- NOTE | 2020-05-18 11:14 | PCSTNOTE ---
Please refer to the Bedside Swallow Evaluation in the EMR. Please note, silent aspiration cannot be ruled out at bedside.
[2020-05-18 14:00] VITALS: BP 128/89; PULSE 69; RESP 18; TEMP 36.9; O2SAT 91
--- NOTE | 2020-05-18 14:10 | PCSTNOTE ---
Please refer to the Modified Barium Swallow Evaluation in the EMR.
--- NOTE | 2020-05-18 14:26 | PM.IMPN ---
Progress Note: A&P Assessment and Plan (1) Sepsis due to Klebsiella: Code(s): A41.4 - Sepsis due to anaerobes Status: Acute Assessment and Plan: Sepsis with septicemia present on admission. Lactic acid and WBC elevated on admission. Developed fever to 102. Blood and urine cultures growing Klebsiella oxytoca sensitive to ceftriaxone. Initially treated with Zosyn but changed to Rocephin 05/16 (dose increased 05/17). LFTs elevated felt related to sepsis but better today. Will follow. Continue IV abx. Increased activity. Voiding trial today. (2) UTI due to Klebsiella species: Code(s): N39.0 - Urinary tract infection, site not specified; B96.89 - Other specified bacterial agents as the cause of diseases classified elsewhere Status: Acute Assessment and Plan: Klebsiella oxytoca, sensitive to ceftriaxone. Continue Rocephin. (3) Gross hematuria: Code(s): R31.0 - Gross hematuria Status: Acute Assessment and Plan: Patient has history of prostatic cancer status post TURP and radiation therapy. Presents with AMS and gross hematuria. CT Abd/Pelvis showing dense fluid in bladder with mild diffuse bladder wall thickening. Treated with a CBI. Urology following. CBI weaned off now. Ricks removed today - monitor UOP. Continue tamsulosin. (4) Acute delirium: Code(s): R41.0 - Disorientation, unspecified Status: Acute Assessment and Plan: Acute metabolic encephalopathy most likely related to UTI with with Klebsiella oxytoca in blood and urine sensitive to ceftriaxone. Changed to Rocephin 05/16 and dose increased to 2gm on 05/17 CT scan of the head shows chronic stroke. Much improved. Continue to monitor. Increase activity. Speech therapy consult and MBS recommended. Patient passed MBS and diet to be advanced. Contineu PT/OT. (5) Atrial fibrillation: Qualifiers: Atrial fibrillation type: unspecified Qualified Code(s): I48.91 - Unspecified atrial fibrillation Code(s): I48.91 - Unspecified atrial fibrillation Status: Chronic Assessment and Plan: Patient came in on Eliquis but on hold due to hematuria. HR controlled. Resume Eliquis when okay with urology. (6) Hypertension: Qualifiers: Hypertension type: unspecified Qualified Code(s): I10 - Essential (primary) hypertension Code(s): I10 - Essential (primary) hypertension Status: Chronic Assessment and Plan: BP reviewed on 05/18. BP well controlled. Continue Amlodipine (7) Hypothyroidism: Qualifiers: Hypothyroidism type: unspecified Qualified Code(s): E03.9 - Hypothyroidism, unspecified Code(s): E03.9 - Hypothyroidism, unspecified Status: Acute Assessment and Plan: TSH level normal. Continue levothyroxine. (8) History of DVT of lower extremity: Code(s): Z86.718 - Personal history of other venous thrombosis and embolism Status: Acute Assessment and Plan: Patient had been on Eliquis but on hold due to the hematuria. (9) Anemia: Code(s): D64.9 - Anemia, unspecified Status: Acute Assessment and Plan: Hgb has drifted down to 7 range but stable. Suspect patient with chronic anemia and acute component from the gross hematuria. Could also have a dilutional component since on IV fluids. MCV elevated but B12 level okay. Iron studies more consistent with anemia of chronic disease. Follow HH. (10) Renal insufficiency: Code(s): N28.9 - Disorder of kidney and ureter, unspecified Status: Acute Assessment and Plan: Creatinine elevated but stable. Old values from 2019 were normal. Renal US okay. TCK mildly elevated. Cr better again today off IV fluids. Follow. (11) Elevated LFTs: Code(s): R79.89 - Other specified abnormal findings of blood chemistry Status: Acute Assessment and Plan: As above.
[2020-05-18] MEDS: APIXABAN 2.5 MG TABLET PO (17:27)
[2020-05-18 20:00] VITALS: PULSE 69; RESP 18; O2SAT 91
[2020-05-18] MEDS: MELATONIN 5 MG TABLET 10 MG PO (20:08)
[2020-05-18] MEDS: LATANOPROST 0.005% OP SOLN 2.5 ML BTL 1 DROP EACH EYE (20:08)
[2020-05-18 21:57] VITALS: BP 145/59; PULSE 73; RESP 20; TEMP 37.2; O2SAT 91
[2020-05-19 06:00] VITALS: BP 135/65; PULSE 73; RESP 20; TEMP 37.2; O2SAT 95
[2020-05-19] MEDS: LEVOTHYROXINE SODIUM 50 MCG TABLET PO (06:21)
[2020-05-19 06:31] LABS: Basophils Percent Auto 0.3 % (0.2-1.2); Eosinophils Absolute Auto 0.4 K/mm3 (0-0.3); Eosinophils Percent Auto 2.5 % (0-4.4); Hematocrit 24.5 % (42.0-52.0); Immature Granulocyte Percent A 5.3 % (0-0.5); Lymphocytes Absolute Auto 1.47 K/mm3 (0.9-3.2); Mean Corpuscular HGB Conc 32.7 g/dl (32-36); Mean Corpuscular Hemoglobin 33.1 pg (26-34); Mean Corpuscular Volume 101.2 fl (80-100); Mean Platelet Volume 10.6 fl (7.4-10.4); Monocytes Absolute Auto 1.1 K/mm3 (0.1-0.6); Monocytes Percent Auto 7.4 % (2.6-8.5); Neutrophils Absolute Auto 11.4 K/mm3 (1.3-6.7); Neutrophils Percent Auto 74.8 % (45.5-73.1); Nucleated Red Blood Cells Absolute Auto 0.1 K/mm3 (0.0-0.012); Nucleated Red Blood Cells Perc 0.4 % (0.0-0.2); Platelet Count Result 283 k/mm3 (150-375); Red Blood Count 2.42 M/mm3 (4.6-6.20); Red Cell Distribution Width 14.7 % (11.5-14.5); White Blood Count 15.2 K/mm3 (4.5-10.0)
[2020-05-19 06:56] LABS: Lymphocytes Percent Auto 9.7 % (18.3-44.2)
[2020-05-19 06:59] LABS: Alanine Aminotransferase 138 U/L (4-50); Albumin Level 2.9 g/dL (3.5-5.1); Alkaline Phosphatase 107 U/L (38-126); Anion Gap 3 mmol/L (8-16); Aspartate Amino Transferase 142 U/L (17-59); Bilirubin,Total 0.6 mg/dL (0.2-1.3); Blood Urea Nitrogen 31 mg/dL (9-20); Carbon Dioxide 26 mmol/L (22-30); Chloride 107 mmol/L (98-107); Estimated CRCL calculation 36 ml/min; Estimated Glomerular Filt Rate 48; Glucose 113 mg/dL (75-110); Potassium 3.7 mmol/L (3.4-5.0); Sodium 136 mmol/L (137-145)
[2020-05-19] MEDS: TAMSULOSIN HCL 0.4 MG CAPSULE PO (08:06)
[2020-05-19] MEDS: DORZOLAMIDE/TIMOLOL OPHTH SOL 10 ML BOTTLE 1 DROP EACH EYE ×2 (08:06→21:58)
[2020-05-19] MEDS: APIXABAN 2.5 MG TABLET PO ×2 (08:06→18:01)
[2020-05-19] MEDS: amLODIPine BESYLATE 5 MG TABLET 10 MG PO (08:06)
[2020-05-19] MEDS: MULTIVITAMINS THERAPEUTIC TAB (*BKC) 1 TABLET PO (08:07)
--- NOTE | 2020-05-19 08:51 | WPDUROPN2 ---
Progress Note: A&P Assessment and Plan (1) UTI due to Klebsiella species: Code(s): N39.0 - Urinary tract infection, site not specified; B96.89 - Other specified bacterial agents as the cause of diseases classified elsewhere Status: Acute Assessment and Plan: Resolved. (2) Gross hematuria: Code(s): R31.0 - Gross hematuria Status: Acute Assessment and Plan: Repeat urine culture negative. Gross Hematuria resolved, patient passed voiding trial yesterday. Anticoagulants restarted. Ok to discharge when clinically stable. Creatinine is improving. NO further evaluation at this time. Subjective Subjective Date/Time Seen: 05/19/20 08:51 Gross Hematuria resolved several days ago, off CBI. Ricks removed yesterday, patient is urinating well, his PVR yesterday was <300cc. He is alert today and oriented. Initially Klebsiella was growing, but a repeat urine culture from 05/16/2020 is negative. Patient denies blood in his urine, despite restarting anticoagulants. Review of Systems Cardiovascular: Cardiovascular: Reports no additional cardiovascular complaints Respiratory: Respiratory: Reports no additional respiratory complaints Gastrointestinal: Gastrointestinal: Denies abdominal pain, Denies nausea and Denies vomiting Genitourinary: Genitourinary: Denies hematuria, Denies dysuria, Denies flank pain, Denies urinary frequency and Denies urinary hesitancy Exam Resp: Effort & Inspection: normal respiratory effort Cardio: Rate: regular rate GI: GI Palp: Yes Soft to palpation and No Tenderness to palpation present (GI) : General: Yes no CVA tenderness Extrem: General: no edema Objective Data Vital Signs Vital Signs: Vital Signs - 24 hr 05/18/20 14:00 05/18/20 20:00 05/18/20 21:57 Temperature 98.4 F 98.9 F Pulse Rate 69 69 73 Respiratory Rate 18 18 20 Blood Pressure 128/89 145/59 H Pulse Oximetry 91 91 91 05/19/20 06:00 Temperature 99.0 F Pulse Rate 73 Respiratory Rate 20 Blood Pressure 135/65 Pulse Oximetry 95 Intake/Output Intake/Output: Intake & Output 05/16/20 05/17/20 05/18/20 05/19/20 23:59 23:59 23:59 23:59 Intake Total 2110 2700 1300 400 Output Total 3250 700 1000 Balance -1140 2000 300 400 Meds/Results Medications: Active Medications Generic Name Dose Route Start Last Admin Trade Name Freq PRN Reason Stop Dose Admin Acetaminophen 325 mg 05/14/20 14:58 Acetaminophen 325 Mg Tablet PO Q6H PRN Mild Pain (1-3) or Fever Amlodipine Besylate 10 mg 05/15/20 11:30 05/19/20 08:06 Amlodipine Besylate 5 Mg Tablet PO 10 mg QAM DANE Administration Apixaban 2.5 mg 05/18/20 17:00 05/19/20 08:06 Apixaban 2.5 Mg Tablet PO 2.5 mg BID DANE Administration Dorzolamide/Timolol 1 drop 05/13/20 21:00 05/19/20 08:06 Dorzolamide/Timolol Ophth Alysia 10 Ml Bottle EACH EYE 1 drop Q12HR DANE Administration Hydralazine HCl 10 mg 05/14/20 10:53 Hydralazine Hcl 20 Mg/Ml Vial IV PUSH Q6H PRN Hypertension Ceftriaxone Sodium 2 gm in 100 mls @ 200 mls/hr 05/17/20 09:00 05/19/20 08:06 Rocephin 2 Gm/D5w 100 Ml IVPB 200 mls/hr Q24H DANE Administration Latanoprost 1 drop 05/13/20 21:00 05/18/20 20:08 Latanoprost 0.005% Op Soln 2.5 Ml Btl EACH EYE 1 drop HS DANE Administration Levothyroxine Sodium 50 mcg 05/14/20 06:30 05/19/20 06:21 Levothyroxine Sodium 50 Mcg Tablet PO 50 mcg DAILY@0630 DANE Administration Lorazepam 0.5 mg 05/13/20 18:04 05/14/20 06:09 Lorazepam Inj (*Crx) 2 Mg/Ml Vial IV PUSH 0.5 mg Q6H PRN Administration Anxiety Melatonin 10 mg 05/14/20 21:00 05/18/20 20:08 Melatonin 5 Mg Tablet PO 10 mg HS DANE Administration Multivitamins Therapeutic 1 tablet 05/14/20 09:00 05/19/20 08:07 Multivitamins Therapeutic Tab (*Bkc) PO 1 tablet DAILY DANE Administration Polyethylene Glycol 17 gm 05/14/20 09:00 05/19/20 08:07 Polyethylene Glycol
--- NOTE | 2020-05-19 11:55 | PM.IMPN ---
Progress Note: A&P Assessment and Plan (1) Sepsis due to Klebsiella: Code(s): A41.4 - Sepsis due to anaerobes Status: Acute Assessment and Plan: Sepsis with septicemia present on admission. Lactic acid and WBC elevated on admission. Developed fever to 102. Blood and urine cultures growing Klebsiella oxytoca sensitive to ceftriaxone. Initially treated with Zosyn but changed to Rocephin 05/16 (dose increased 05/17). LFTs elevated felt related to sepsis and worse today. WBC also higher for unclear reasons. Will follow. Continue IV abx. Increased activity. (2) UTI due to Klebsiella species: Code(s): N39.0 - Urinary tract infection, site not specified; B96.89 - Other specified bacterial agents as the cause of diseases classified elsewhere Status: Acute Assessment and Plan: Klebsiella oxytoca, sensitive to ceftriaxone. Continue ceftriaxone. (3) Gross hematuria: Code(s): R31.0 - Gross hematuria Status: Acute Assessment and Plan: Patient has history of prostatic cancer status post TURP and radiation therapy. Presents with AMS and gross hematuria. CT Abd/Pelvis showing dense fluid in bladder with mild diffuse bladder wall thickening. Urology consulted. Treated with a CBI. CBI able to be weaned off. Ricks removed yesterday - monitor UOP. Continue tamsulosin. (4) Acute delirium: Code(s): R41.0 - Disorientation, unspecified Status: Acute Assessment and Plan: Acute metabolic encephalopathy most likely related to UTI with Klebsiella oxytoca in blood and urine sensitive to ceftriaxone. Changed to Rocephin 05/16 and dose increased to 2gm on 05/17 CT scan of the head shows chronic stroke. AMS much improved. Continue to monitor. Increase activity. Speech therapy consulted and MBS recommended. Patient passed MBS and diet to be advanced. Contineue PT/OT. (5) Atrial fibrillation: Qualifiers: Atrial fibrillation type: unspecified Qualified Code(s): I48.91 - Unspecified atrial fibrillation Code(s): I48.91 - Unspecified atrial fibrillation Status: Chronic Assessment and Plan: Patient came in on Eliquis but on hold due to hematuria. HR controlled. Discussed with urology who felt okay to resume so Eliquis resumed last night. (6) Hypertension: Qualifiers: Hypertension type: unspecified Qualified Code(s): I10 - Essential (primary) hypertension Code(s): I10 - Essential (primary) hypertension Status: Chronic Assessment and Plan: BP reviewed on 05/19. BP well controlled. Continue Amlodipine (7) Hypothyroidism: Qualifiers: Hypothyroidism type: unspecified Qualified Code(s): E03.9 - Hypothyroidism, unspecified Code(s): E03.9 - Hypothyroidism, unspecified Status: Acute Assessment and Plan: TSH level normal. Continue levothyroxine. (8) History of DVT of lower extremity: Code(s): Z86.718 - Personal history of other venous thrombosis and embolism Status: Acute Assessment and Plan: Patient had been on Eliquis but was on hold due to the hematuria. Resumed last night (9) Anemia: Code(s): D64.9 - Anemia, unspecified Status: Acute Assessment and Plan: Hgb has drifted down to 7 range but stable. Suspect patient with chronic anemia and acute component from the gross hematuria. Could also have a dilutional component since on IV fluids. MCV elevated but B12 level okay. Iron studies more consistent with anemia of chronic disease. Hgb better today. Follow HH. (10) Renal insufficiency: Code(s): N28.9 - Disorder of kidney and ureter, unspecified Status: Acute Assessment and Plan: Creatinine elevated but stable. Old values from 2019 were normal. Renal US okay. TCK mildly elevated. Cr better again today off IV fluids. Follow. (11) Elevated LFTs: Code(s): R79.89 - Other sp
[2020-05-19] MEDS: FLUTICASONE PROPIONATE 0.05% NA SPR 16 GM BTL (*BKC) 2 SPRAY NASAL (16:14)
[2020-05-19 21:30] VITALS: BP 164/58; PULSE 80; RESP 20; TEMP 37; O2SAT 96
[2020-05-19] MEDS: MELATONIN 5 MG TABLET 10 MG PO (21:57)
[2020-05-19] MEDS: LATANOPROST 0.005% OP SOLN 2.5 ML BTL 1 DROP EACH EYE (21:58)
[2020-05-20] MEDS: hydrALAZINE HCL 20 MG/ML VIAL 10 MG IV PUSH (00:05)
[2020-05-20] MEDS: LEVOTHYROXINE SODIUM 50 MCG TABLET PO (05:42)
[2020-05-20 05:45] VITALS: BP 152/61; PULSE 82; RESP 18; TEMP 36.7; O2SAT 93
[2020-05-20 06:33] LABS: Basophils Absolute Auto 0.1 K/mm3 (0.0-0.1); Basophils Percent Auto 0.3 % (0.2-1.2); Eosinophils Absolute Auto 0.2 K/mm3 (0-0.3); Eosinophils Percent Auto 1.2 % (0-4.4); Hematocrit 24.3 % (42.0-52.0); Hemoglobin 8.1 g/dL (14.0-18.0); Immature Granulocyte Absolute 0.68 K/mm3 (0.00-0.031); Immature Granulocyte Percent A 4.4 % (0-0.5); Lymphocytes Absolute Auto 1.61 K/mm3 (0.9-3.2); Lymphocytes Percent Auto 10.5 % (18.3-44.2); Mean Corpuscular HGB Conc 33.3 g/dl (32-36); Mean Corpuscular Hemoglobin 33.6 pg (26-34); Mean Corpuscular Volume 100.8 fl (80-100); Mean Platelet Volume 10.6 fl (7.4-10.4); Monocytes Percent Auto 6.6 % (2.6-8.5); Neutrophils Absolute Auto 11.9 K/mm3 (1.3-6.7); Nucleated Red Blood Cells Perc 0.1 % (0.0-0.2); Platelet Count Result 295 k/mm3 (150-375); Red Blood Count 2.41 M/mm3 (4.6-6.20); Red Cell Distribution Width 14.9 % (11.5-14.5); White Blood Count 15.4 K/mm3 (4.5-10.0)
[2020-05-20 06:43] LABS: Alanine Aminotransferase 134 U/L (4-50); Albumin Level 2.8 g/dL (3.5-5.1); Alkaline Phosphatase 99 U/L (38-126); Anion Gap 3 mmol/L (8-16); Aspartate Amino Transferase 133 U/L (17-59); Bilirubin,Total 0.6 mg/dL (0.2-1.3); Blood Urea Nitrogen 25 mg/dL (9-20); Calcium 7.6 mg/dL (8.4-10.2); Carbon Dioxide 24 mmol/L (22-30); Chloride 107 mmol/L (98-107); Estimated CRCL calculation 38 ml/min; Estimated Glomerular Filt Rate 52; Glucose 115 mg/dL (75-110); Potassium 3.4 mmol/L (3.4-5.0); Sodium 134 mmol/L (137-145)
[2020-05-20 06:55] LABS: CRP 13.9 mg/dL (<1.0)
[2020-05-20] MEDS: APIXABAN 2.5 MG TABLET PO ×2 (08:31→16:58)
[2020-05-20] MEDS: FLUTICASONE PROPIONATE 0.05% NA SPR 16 GM BTL (*BKC) 2 SPRAY NASAL (08:31)
[2020-05-20] MEDS: DORZOLAMIDE/TIMOLOL OPHTH SOL 10 ML BOTTLE 1 DROP EACH EYE ×2 (08:31→20:27)
[2020-05-20] MEDS: MULTIVITAMINS THERAPEUTIC TAB (*BKC) 1 TABLET PO (08:32)
[2020-05-20] MEDS: TAMSULOSIN HCL 0.4 MG CAPSULE PO (08:32)
[2020-05-20] MEDS: polyethylene glycoL 3350 17 GM POWD.PACK PO (08:32)
[2020-05-20] MEDS: amLODIPine BESYLATE 5 MG TABLET 10 MG PO (08:32)
[2020-05-20 12:11] LABS: Hematocrit 23.6 % (42.0-52.0); Hemoglobin 7.9 g/dL (14.0-18.0); Mean Corpuscular HGB Conc 33.5 g/dl (32-36); Mean Corpuscular Hemoglobin 33.8 pg (26-34); Mean Corpuscular Volume 100.9 fl (80-100); Mean Platelet Volume 10.4 fl (7.4-10.4); Platelet Count Result 320 k/mm3 (150-375); Red Blood Count 2.34 M/mm3 (4.6-6.20); Red Cell Distribution Width 15.1 % (11.5-14.5); White Blood Count 17.8 K/mm3 (4.5-10.0)
--- NOTE | 2020-05-20 13:04 | PCNWS ---
Weekly nutritional screen. Patient is tolerating current diet of soft and bite sized, Level 6. Eating well per nursing. MBS on 05/18-recommending soft and bite sized, Level 6 with thin liquids. No weight loss reported. Patient instruction attached for discharge. No nutritional needs at this time.
[2020-05-20 14:00] VITALS: BP 126/56; PULSE 79; RESP 18; TEMP 36.9; O2SAT 95
--- NOTE | 2020-05-20 16:20 | PM.IMPN ---
Progress Note: A&P Assessment and Plan (1) Sepsis due to Klebsiella: Code(s): A41.4 - Sepsis due to anaerobes Status: Acute Assessment and Plan: Sepsis with septicemia present on admission. Lactic acid and WBC elevated on admission. Developed fever to 102. Blood and urine cultures growing Klebsiella oxytoca sensitive to ceftriaxone. Initially treated with Zosyn but changed to Rocephin 05/16 (dose increased 05/17). LFTs elevated felt related to sepsis and better today. WBC also higher for unclear reasons. Will follow. Check CXR. Add Flagyl given the risk of aspiration and poor dentitiion. (2) UTI due to Klebsiella species: Code(s): N39.0 - Urinary tract infection, site not specified; B96.89 - Other specified bacterial agents as the cause of diseases classified elsewhere Status: Acute Assessment and Plan: Klebsiella oxytoca, sensitive to ceftriaxone. Continue ceftriaxone. (3) Gross hematuria: Code(s): R31.0 - Gross hematuria Status: Acute Assessment and Plan: Patient has history of prostatic cancer status post TURP and radiation therapy. Presents with AMS and gross hematuria. CT Abd/Pelvis showing dense fluid in bladder with mild diffuse bladder wall thickening. Urology consulted. Treated with a CBI. CBI able to be weaned off. Ricks removed and patient voiding well. Continue tamsulosin. (4) Acute delirium: Code(s): R41.0 - Disorientation, unspecified Status: Acute Assessment and Plan: Acute metabolic encephalopathy most likely related to UTI with Klebsiella oxytoca in blood and urine. Changed to Rocephin 05/16 and dose increased on 05/17 CT scan of the head shows chronic stroke. AMS much improved. Continue to monitor. Increase activity. Speech therapy consulted and MBS performed. Patient passed MBS and diet to be advanced. Continue PT/OT. (5) Atrial fibrillation: Qualifiers: Atrial fibrillation type: unspecified Qualified Code(s): I48.91 - Unspecified atrial fibrillation Code(s): I48.91 - Unspecified atrial fibrillation Status: Chronic Assessment and Plan: Patient came in on Eliquis but on hold due to hematuria. HR controlled. Discussed with urology who felt okay to resume so Eliquis resumed 05/18. (6) Hypertension: Qualifiers: Hypertension type: unspecified Qualified Code(s): I10 - Essential (primary) hypertension Code(s): I10 - Essential (primary) hypertension Status: Chronic Assessment and Plan: BP reviewed on 05/20. BP reasonably well controlled. Continue Amlodipine (7) Hypothyroidism: Qualifiers: Hypothyroidism type: unspecified Qualified Code(s): E03.9 - Hypothyroidism, unspecified Code(s): E03.9 - Hypothyroidism, unspecified Status: Acute Assessment and Plan: TSH level normal. Continue levothyroxine. (8) History of DVT of lower extremity: Code(s): Z86.718 - Personal history of other venous thrombosis and embolism Status: Acute Assessment and Plan: Patient had been on Eliquis but was on hold due to the hematuria. Eliquis resumed (9) Anemia: Code(s): D64.9 - Anemia, unspecified Status: Acute Assessment and Plan: Hgb has drifted down to 7 range but stable. Suspect patient with chronic anemia and acute component from the gross hematuria. Could also have a dilutional component since on IV fluids. MCV elevated but B12 level okay. Iron studies more consistent with anemia of chronic disease. Hgb in the 8 range. (10) Renal insufficiency: Code(s): N28.9 - Disorder of kidney and ureter, unspecified Status: Acute Assessment and Plan: Creatinine elevated but stable. Old values from 2019 were normal. Renal US okay. TCK mildly elevated. Cr better again today off IV fluids. Follow. (11) Elevated LFTs: Code(s): R79.89 - Other specifi
[2020-05-20] MEDS: metroNIDAZOLE 250 MG TABLET PO ×2 (16:58→20:28)
[2020-05-20] MEDS: LATANOPROST 0.005% OP SOLN 2.5 ML BTL 1 DROP EACH EYE (20:27)
[2020-05-20] MEDS: MELATONIN 5 MG TABLET 10 MG PO (20:27)
[2020-05-20 22:00] VITALS: BP 135/52; PULSE 72; RESP 18; TEMP 37.6; O2SAT 91
[2020-05-21] VITALS (7 sets, daily range): BP systolic 104–144; BP diastolic 48–64; PULSE 74–84; RESP 18–20; TEMP 36.7–38.8; O2SAT 91–95
[2020-05-21] MEDS: ACETAMINOPHEN 325 MG TABLET PO ×2 (05:56→17:41)
[2020-05-21] MEDS: LEVOTHYROXINE SODIUM 50 MCG TABLET PO (06:12)
--- NOTE | 2020-05-21 06:26 | PC.NURSE ---
Patient's AM vitals showed a temp of 101.8 reported by RECRUITMENT MANAGER. Hospitalist notified. Blood cultures were drawn and ice placed under his arm pits. Discussed Tylenol use, Hospitalist considered liver enzymes though ok'd one dose of Tylenol and ordered blood cultures. Patient has no complaints of pain or other discomfort.
[2020-05-21 06:36] LABS: Basophils Absolute Auto 0.1 K/mm3 (0.0-0.1); Basophils Percent Auto 0.3 % (0.2-1.2); Eosinophils Absolute Auto 0.2 K/mm3 (0-0.3); Eosinophils Percent Auto 1.2 % (0-4.4); Hemoglobin 7.5 g/dL (14.0-18.0); Immature Granulocyte Absolute 0.45 K/mm3 (0.00-0.031); Immature Granulocyte Percent A 2.5 % (0-0.5); Lymphocytes Absolute Auto 1.63 K/mm3 (0.9-3.2); Mean Corpuscular HGB Conc 32.6 g/dl (32-36); Mean Corpuscular Hemoglobin 33.5 pg (26-34); Mean Corpuscular Volume 102.7 fl (80-100); Mean Platelet Volume 10.3 fl (7.4-10.4); Monocytes Absolute Auto 0.9 K/mm3 (0.1-0.6); Monocytes Percent Auto 5.1 % (2.6-8.5); Neutrophils Absolute Auto 14.9 K/mm3 (1.3-6.7); Neutrophils Percent Auto 81.9 % (45.5-73.1); Nucleated Red Blood Cells Perc 0.1 % (0.0-0.2); Platelet Count Result 347 k/mm3 (150-375); Red Blood Count 2.24 M/mm3 (4.6-6.20); White Blood Count 18.2 K/mm3 (4.5-10.0)
[2020-05-21] MEDS: metroNIDAZOLE 250 MG TABLET PO ×4 (10:26→21:28)
[2020-05-21] MEDS: FLUTICASONE PROPIONATE 0.05% NA SPR 16 GM BTL (*BKC) 2 SPRAY NASAL (10:26)
[2020-05-21] MEDS: TAMSULOSIN HCL 0.4 MG CAPSULE PO (10:26)
[2020-05-21] MEDS: APIXABAN 2.5 MG TABLET PO ×2 (10:26→17:36)
[2020-05-21] MEDS: DORZOLAMIDE/TIMOLOL OPHTH SOL 10 ML BOTTLE 1 DROP EACH EYE ×2 (10:26→21:37)
[2020-05-21] MEDS: amLODIPine BESYLATE 5 MG TABLET 10 MG PO (10:26)
[2020-05-21] MEDS: MULTIVITAMINS THERAPEUTIC TAB (*BKC) 1 TABLET PO (10:26)
[2020-05-21] MEDS: polyethylene glycoL 3350 17 GM POWD.PACK PO (10:28)
--- NOTE | 2020-05-21 11:43 | PM.IMPN ---
Progress Note: A&P Assessment and Plan (1) Sepsis due to Klebsiella: Code(s): A41.4 - Sepsis due to anaerobes Status: Acute Assessment and Plan: Sepsis with septicemia present on admission. Lactic acid and WBC elevated on admission. Developed fever to 102. Blood and urine cultures growing Klebsiella oxytoca sensitive to ceftriaxone. Initially treated with Zosyn but changed to Rocephin 05/16 (dose increased 05/17). LFTs elevated felt related to sepsis and better yesterday. CXR 05/20 showing small bilateral pleural effusions with bibasilar atelectasis and/or pneumonia. WBC climbing so Flagyl added 05/20 for possible anaerobic lung infection given his risk of aspiration and poor dentition. He did have fever last night. COVID testing ordered. (2) UTI due to Klebsiella species: Code(s): N39.0 - Urinary tract infection, site not specified; B96.89 - Other specified bacterial agents as the cause of diseases classified elsewhere Status: Acute Assessment and Plan: Klebsiella oxytoca, sensitive to ceftriaxone. Continue ceftriaxone. (3) Gross hematuria: Code(s): R31.0 - Gross hematuria Status: Acute Assessment and Plan: Patient has history of prostatic cancer status post TURP and radiation therapy. Presents with AMS and gross hematuria. CT Abd/Pelvis showing dense fluid in bladder with mild diffuse bladder wall thickening. Urology consulted. Treated with a CBI. CBI able to be weaned off. Ricks removed and patient voiding well. Continue tamsulosin. (4) Acute delirium: Code(s): R41.0 - Disorientation, unspecified Status: Acute Assessment and Plan: Acute metabolic encephalopathy most likely related to UTI with Klebsiella oxytoca in blood and urine. Changed to Rocephin. CT scan of the head shows chronic stroke. AMS much improved. Continue to monitor. Increase activity. Speech therapy consulted and MBS performed. Patient passed MBS and diet advanced. Continue PT/OT. (5) Atrial fibrillation: Qualifiers: Atrial fibrillation type: unspecified Qualified Code(s): I48.91 - Unspecified atrial fibrillation Code(s): I48.91 - Unspecified atrial fibrillation Status: Chronic Assessment and Plan: Patient came in on Eliquis but on hold due to hematuria. HR controlled. Discussed with urology who felt okay to resume so Eliquis resumed 05/18. (6) Hypertension: Qualifiers: Hypertension type: unspecified Qualified Code(s): I10 - Essential (primary) hypertension Code(s): I10 - Essential (primary) hypertension Status: Chronic Assessment and Plan: BP reviewed on 05/21. BP reasonably well controlled. Continue Amlodipine (7) Hypothyroidism: Qualifiers: Hypothyroidism type: unspecified Qualified Code(s): E03.9 - Hypothyroidism, unspecified Code(s): E03.9 - Hypothyroidism, unspecified Status: Acute Assessment and Plan: TSH level normal. Continue levothyroxine. (8) History of DVT of lower extremity: Code(s): Z86.718 - Personal history of other venous thrombosis and embolism Status: Acute Assessment and Plan: Patient had been on Eliquis but was on hold due to the hematuria. Eliquis has been resumed (9) Anemia: Code(s): D64.9 - Anemia, unspecified Status: Acute Assessment and Plan: Hgb has drifted down to 7 range but stable now. Suspect patient with chronic anemia and acute component from the gross hematuria. Could also have a dilutional component since on IV fluids. MCV elevated but B12 level okay. Iron studies more consistent with anemia of chronic disease. Hgb in the 7-8 range. (10) Renal insufficiency: Code(s): N28.9 - Disorder of kidney and ureter, unspecified Status: Acute Assessment and Plan: Creatinine elevated but stable. Old values from 2019 were normal. Renal US okay. GERMAINE aquino
[2020-05-21] MEDS: MELATONIN 5 MG TABLET 10 MG PO (21:28)
[2020-05-21] MEDS: LATANOPROST 0.005% OP SOLN 2.5 ML BTL 1 DROP EACH EYE (21:37)
[2020-05-21 22:25] LABS: SARS-CoV-2 RNA PCR Negative
[2020-05-22 01:20] LABS: Creatinine, Random Urine 107 mg/dL (20-320); Total Protein/Creatinine Ratio 1551 mg/g creat (22-128)
[2020-05-22 02:26] VITALS: TEMP 37.7
[2020-05-22] MEDS: ACETAMINOPHEN 325 MG TABLET PO ×2 (02:26→20:38)
[2020-05-22 04:00] VITALS: TEMP 37.4
[2020-05-22 05:54] LABS: Albumin 2.4 g/dL (3.8-4.8); Alpha 1 Globulin 0.5 g/dL (0.2-0.3); Alpha 2 Globulin 0.9 g/dL (0.5-0.9); Beta 1 Globulin 0.4 g/dL (0.4-0.6); Gamma Globulin 0.6 g/dL (0.8-1.7); Protein, Total 5.2 g/dL (6.1-8.1)
[2020-05-22] MEDS: LEVOTHYROXINE SODIUM 50 MCG TABLET PO (05:54)
[2020-05-22 06:00] VITALS: BP 126/55; PULSE 77; RESP 20; TEMP 37.4; O2SAT 95
[2020-05-22 07:07] LABS: Basophils Percent Auto 0.2 % (0.2-1.2); Eosinophils Absolute Auto 0.2 K/mm3 (0-0.3); Eosinophils Percent Auto 0.9 % (0-4.4); Hematocrit 22.9 % (42.0-52.0); Hemoglobin 7.4 g/dL (14.0-18.0); Immature Granulocyte Absolute 0.27 K/mm3 (0.00-0.031); Immature Granulocyte Percent A 1.6 % (0-0.5); Lymphocytes Absolute Auto 1.45 K/mm3 (0.9-3.2); Lymphocytes Percent Auto 8.5 % (18.3-44.2); Mean Corpuscular HGB Conc 32.3 g/dl (32-36); Mean Corpuscular Volume 102.2 fl (80-100); Mean Platelet Volume 10.1 fl (7.4-10.4); Monocytes Absolute Auto 0.9 K/mm3 (0.1-0.6); Monocytes Percent Auto 5.3 % (2.6-8.5); Neutrophils Absolute Auto 14.3 K/mm3 (1.3-6.7); Neutrophils Percent Auto 83.5 % (45.5-73.1); Platelet Count Result 361 k/mm3 (150-375); Red Blood Count 2.24 M/mm3 (4.6-6.20); Red Cell Distribution Width 14.8 % (11.5-14.5); White Blood Count 17.1 K/mm3 (4.5-10.0)
[2020-05-22 07:24] LABS: Alanine Aminotransferase 103 U/L (4-50); Albumin Level 2.7 g/dL (3.5-5.1); Alkaline Phosphatase 93 U/L (38-126); Anion Gap 4 mmol/L (8-16); Aspartate Amino Transferase 86 U/L (17-59); Bilirubin,Total 0.5 mg/dL (0.2-1.3); Blood Urea Nitrogen 17 mg/dL (9-20); Calcium 7.3 mg/dL (8.4-10.2); Carbon Dioxide 23 mmol/L (22-30); Chloride 107 mmol/L (98-107); Estimated CRCL calculation 38 ml/min; Estimated Glomerular Filt Rate 52; Glucose 107 mg/dL (75-110); Magnesium 2.2 mg/dL (1.6-2.3); Phosphorus 3.8 mg/dL (2.5-4.5); Potassium 3.2 mmol/L (3.4-5.0); Sodium 134 mmol/L (137-145)
[2020-05-22] MEDS: FLUTICASONE PROPIONATE 0.05% NA SPR 16 GM BTL (*BKC) 2 SPRAY NASAL (08:36)
[2020-05-22] MEDS: POTASSIUM CHLORIDE 20 MEQ TABLET 40 MEQ PO (08:36)
[2020-05-22] MEDS: metroNIDAZOLE 250 MG TABLET PO ×4 (08:37→20:29)
[2020-05-22] MEDS: DORZOLAMIDE/TIMOLOL OPHTH SOL 10 ML BOTTLE 1 DROP EACH EYE ×2 (08:37→20:29)
[2020-05-22] MEDS: APIXABAN 2.5 MG TABLET PO ×2 (08:37→16:54)
[2020-05-22] MEDS: MULTIVITAMINS THERAPEUTIC TAB (*BKC) 1 TABLET PO (08:38)
[2020-05-22] MEDS: amLODIPine BESYLATE 5 MG TABLET 10 MG PO (08:38)
[2020-05-22] MEDS: polyethylene glycoL 3350 17 GM POWD.PACK PO (08:38)
[2020-05-22] MEDS: TAMSULOSIN HCL 0.4 MG CAPSULE PO (08:38)
[2020-05-22 08:56] LABS: Immunoglobulin A 418 mg/dL (70-400); Immunoglobulin G 814 mg/dL (700-1600); Immunoglobulin M 54 mg/dL (40-230)
[2020-05-22 14:00] VITALS: BP 139/61; PULSE 77; RESP 20; TEMP 37.2; O2SAT 95
--- NOTE | 2020-05-22 15:01 | PM.IMPN ---
Progress Note: A&P Assessment and Plan (1) Sepsis due to Klebsiella: Code(s): A41.4 - Sepsis due to anaerobes Status: Acute Assessment and Plan: Sepsis with septicemia present on admission. Lactic acid and WBC elevated on admission. Developed fever to 102. Blood and urine cultures growing Klebsiella oxytoca sensitive to ceftriaxone. Initially treated with Zosyn but changed to Rocephin 05/16 (dose increased 05/17). LFTs elevated felt related to sepsis and better today. CXR 05/20 showing small bilateral pleural effusions with bibasilar atelectasis and/or pneumonia. WBC climbing to as high as 18K (05/21) and fever (the morning of 05/21). Flagyl had been added 05/20 for possible anaerobic lung infection given his risk of aspiration and poor dentition. COVID testing negative. WBC better today and no further fevers. Continue Flagyl. Repeat WBC in the morning. If better, then okay for discharge. (2) UTI due to Klebsiella species: Code(s): N39.0 - Urinary tract infection, site not specified; B96.89 - Other specified bacterial agents as the cause of diseases classified elsewhere Status: Acute Assessment and Plan: Klebsiella oxytoca, sensitive to ceftriaxone. Continue ceftriaxone. (3) Gross hematuria: Code(s): R31.0 - Gross hematuria Status: Acute Assessment and Plan: Patient has history of prostatic cancer status post TURP and radiation therapy. Presents with AMS and gross hematuria. CT Abd/Pelvis showing dense fluid in bladder with mild diffuse bladder wall thickening. Urology consulted. Treated with a CBI. CBI able to be weaned off. Ricks removed and patient voiding well. Continue tamsulosin. (4) Acute delirium: Code(s): R41.0 - Disorientation, unspecified Status: Acute Assessment and Plan: Acute metabolic encephalopathy most likely related to UTI with Klebsiella oxytoca in blood and urine. Changed to Rocephin. CT scan of the head shows chronic stroke. AMS much improved. Continue to monitor. Increase activity. Speech therapy consulted and MBS performed. Patient passed MBS and diet advanced. Continue PT/OT. (5) Atrial fibrillation: Qualifiers: Atrial fibrillation type: unspecified Qualified Code(s): I48.91 - Unspecified atrial fibrillation Code(s): I48.91 - Unspecified atrial fibrillation Status: Chronic Assessment and Plan: Patient came in on Eliquis but held due to hematuria. HR controlled. Discussed with urology who felt okay to resume so Eliquis resumed 05/18. (6) Hypertension: Qualifiers: Hypertension type: unspecified Qualified Code(s): I10 - Essential (primary) hypertension Code(s): I10 - Essential (primary) hypertension Status: Chronic Assessment and Plan: BP reviewed on 05/22. BP reasonably well controlled. Continue Amlodipine (7) Hypothyroidism: Qualifiers: Hypothyroidism type: unspecified Qualified Code(s): E03.9 - Hypothyroidism, unspecified Code(s): E03.9 - Hypothyroidism, unspecified Status: Acute Assessment and Plan: TSH level normal. Continue levothyroxine. (8) History of DVT of lower extremity: Code(s): Z86.718 - Personal history of other venous thrombosis and embolism Status: Acute Assessment and Plan: Patient had been on Eliquis but was on hold due to the hematuria. Eliquis has been resumed (9) Anemia: Code(s): D64.9 - Anemia, unspecified Status: Acute Assessment and Plan: Hgb has drifted down to 7 range but stable now. Suspect patient with chronic anemia and acute component from the gross hematuria. Could also have a dilutional component since on IV fluids. MCV elevated but B12 level okay. Iron studies more consistent with anemia of chronic disease. Hgb stable in the 7-8 range. (10) Renal insufficiency: Code(s): N28.9 - Disorder of kidney an
--- NOTE | 2020-05-22 16:03 | PCOTNOTE ---
Attempted to see patient for skilled OT session at this time. AMITA asked and insisted on patient's participation in session, but patient consistently and repeatedly refused therapy stating, I worked with therapy earlier and all I want to do now is take a nap. I don't mean to sound like a horse's a, but I'm not gonna do it. I will maybe tomorrow. Refusal of therapy this date, continue per Plan of Care tomorrow.
[2020-05-22] MEDS: LATANOPROST 0.005% OP SOLN 2.5 ML BTL 1 DROP EACH EYE (20:29)
[2020-05-22] MEDS: MELATONIN 5 MG TABLET 10 MG PO (20:29)
[2020-05-22 22:00] VITALS: BP 111/57; PULSE 69; RESP 20; TEMP 36.7; O2SAT 95
[2020-05-22] MEDS: LORazepam INJ (*CRX) 2 MG/ML VIAL 0.5 MG IV PUSH (22:28)
--- NOTE | 2020-05-22 22:34 | PC.NURSE ---
2230:PT RESTLESS. ATTEMPTING TO EXIT BED. MULTIPLE ANXIOUS REQUESTS. STATES HE IS CALLING GRANDSON STEPHANIE TO TAKE HIM HOME BECAUSE HE CAN'T SLEEP HERE. . PT IS ORIENTED AND ABLE TO ABLE TO VERIFY ORIENTATION X3. ANXIOUS.
[2020-05-23 06:00] VITALS: BP 130/55; PULSE 80; RESP 20; TEMP 36.8; O2SAT 100
[2020-05-23] MEDS: LEVOTHYROXINE SODIUM 50 MCG TABLET PO (06:35)
[2020-05-23 07:16] LABS: Hematocrit 24.1 % (42.0-52.0); Hemoglobin 7.7 g/dL (14.0-18.0); Mean Corpuscular Hemoglobin 32.5 pg (26-34); Mean Corpuscular Volume 101.7 fl (80-100); Mean Platelet Volume 9.9 fl (7.4-10.4); Platelet Count Result 405 k/mm3 (150-375); Red Blood Count 2.37 M/mm3 (4.6-6.20); Red Cell Distribution Width 14.9 % (11.5-14.5)
[2020-05-23] MEDS: DORZOLAMIDE/TIMOLOL OPHTH SOL 10 ML BOTTLE 1 DROP EACH EYE (09:17)
[2020-05-23] MEDS: FLUTICASONE PROPIONATE 0.05% NA SPR 16 GM BTL (*BKC) 2 SPRAY NASAL (09:17)
[2020-05-23] MEDS: TAMSULOSIN HCL 0.4 MG CAPSULE PO (09:17)
[2020-05-23] MEDS: amLODIPine BESYLATE 5 MG TABLET 10 MG PO (09:17)
[2020-05-23] MEDS: metroNIDAZOLE 250 MG TABLET PO ×2 (09:18→12:37)
[2020-05-23] MEDS: MULTIVITAMINS THERAPEUTIC TAB (*BKC) 1 TABLET PO (09:18)
[2020-05-23] MEDS: APIXABAN 2.5 MG TABLET PO (09:18)
[2020-05-23] MEDS: polyethylene glycoL 3350 17 GM POWD.PACK PO (09:18)
--- NOTE | 2020-05-23 12:39 | PM.DS ---
DS: Admitting Diagnosis Admitting Diagnosis Admitting Diagnosis: Altered mental status DS: Discharge Diagnosis Discharge Diagnosis (1) Sepsis due to Klebsiella: Code(s): A41.4 - Sepsis due to anaerobes Status: Acute Assessment and Plan: Sepsis with septicemia present on admission. Lactic acid and WBC elevated on admission. Developed fever to 102. Blood and urine cultures growing Klebsiella oxytoca sensitive to ceftriaxone. Initially treated with Zosyn but changed to Rocephin 05/16 (dose increased 05/17). LFTs elevated felt related to sepsis and better today. CXR 05/20 showing small bilateral pleural effusions with bibasilar atelectasis and/or pneumonia. WBC trended up to as high as 18K (05/21) and fever (the morning of 05/21). Flagyl was added 05/20 for possible anaerobic lung infection given his risk of aspiration and poor dentition. COVID testing negative. WBC better over the past 2 days and no further fevers. Continue Flagyl. Change Rocephin to Levaquin. (2) UTI due to Klebsiella species: Code(s): N39.0 - Urinary tract infection, site not specified; B96.89 - Other specified bacterial agents as the cause of diseases classified elsewhere Status: Acute Assessment and Plan: Klebsiella oxytoca, sensitive to ceftriaxone. Treated with ceftriaxone. (3) Gross hematuria: Code(s): R31.0 - Gross hematuria Status: Acute Assessment and Plan: Patient has history of prostatic cancer status post TURP and radiation therapy. Presents with AMS and gross hematuria. CT Abd/Pelvis showing dense fluid in bladder with mild diffuse bladder wall thickening. Urology consulted. Treated with a CBI. CBI able to be weaned off. Ricks removed and patient voiding well. We continued tamsulosin. (4) Acute delirium: Code(s): R41.0 - Disorientation, unspecified Status: Acute Assessment and Plan: Acute metabolic encephalopathy most likely related to UTI with Klebsiella oxytoca in blood and urine. Changed to Rocephin. CT scan of the head shows chronic stroke. Mental status much improved. Speech therapy consulted and MBS performed. Patient passed MBS and diet advanced. He worked with PT/OT. Patient and family did not want SNF placement and plan is for discharge home. Spoke with POA and he again declines home health. (5) Atrial fibrillation: Qualifiers: Atrial fibrillation type: unspecified Qualified Code(s): I48.91 - Unspecified atrial fibrillation Code(s): I48.91 - Unspecified atrial fibrillation Status: Chronic Assessment and Plan: Patient came in on Eliquis but held due to hematuria. HR controlled. Discussed with urology who felt okay to resume so Eliquis resumed 05/18. (6) Hypertension: Qualifiers: Hypertension type: unspecified Qualified Code(s): I10 - Essential (primary) hypertension Code(s): I10 - Essential (primary) hypertension Status: Chronic Assessment and Plan: BP monitored closely. BP reasonably well controlled. We continued Amlodipine (7) Hypothyroidism: Qualifiers: Hypothyroidism type: unspecified Qualified Code(s): E03.9 - Hypothyroidism, unspecified Code(s): E03.9 - Hypothyroidism, unspecified Status: Acute Assessment and Plan: TSH level normal. Continue levothyroxine. (8) History of DVT of lower extremity: Code(s): Z86.718 - Personal history of other venous thrombosis and embolism Status: Acute Assessment and Plan: Patient had been on Eliquis but was on hold due to the hematuria. Eliquis was resumed (9) Anemia: Code(s): D64.9 - Anemia, unspecified Status: Acute Assessment and Plan: Hgb has drifted down to 7 range but stable now. Suspect patient with chronic anemia and acute component from the gross hematuria. Could also have a dilutional component since on IV fluids. MCV elevated but B1
--- NOTE | 2020-05-26 13:05 | PC.NURSE ---
UIF - normal SIF- suggestive of acute inflammation pattern. Dr. Avila aware/ Results faxed to Dr. Fall.
== END 2020-05-23 13:58 | disposition home health service (06) | DRG 871 ==
LOC: ANHED 12:01 → ANH3MEDSUR 17:26
PROVIDERS: Emergency Medicine Emergency Medical Services; Internal Medicine; Nurse Practitioner; Admitting Provider Family Medicine; Emergency Provider Emergency Medicine; PCP Internal Medicine; Visit Provider Internal Medicine
DX: A41.4 Sepsis due to anaerobes (principal); G93.41 Metabolic encephalopathy; R41.0 Disorientation, unspecified; I48.91 Unspecified atrial fibrillation; I10 Essential (primary) hypertension; E03.9 Hypothyroidism, unspecified; E78.00 Pure hypercholesterolemia, unspecified; C61 Malignant neoplasm of prostate; I69.322 Dysarthria following cerebral infarction; B96.1 Klebsiella pneumoniae [K. pneumoniae] as the cause of diseases classified elsewhere; Z20.822 Contact with and (suspected) exposure to COVID-19; D64.9 Anemia, unspecified
CPT/HCPCS: 36415; 51702; 70450; 71045; 71046; 74176; 76775; 80053; 80074; 81001; 82140; 82550; 82570; 82607; 82728; 82746; 82784; 83540; 83550; 83605; 83690; 83735; 84100; 84155; 84156; 84165; 84166; 84443; 85014; 85018; 85025; 85027; 85610; 85730; 86140; 86160; 86334; 87040; 87077; 87086; 87088; 87186; 92507; 92526; 92610; 92611; 93005; 96365; 96375; 97110; 97116; 97161; 97165; 97530; 97535; 99285; A9270; C9803; J0360; J0696; J1940; J2060; J2543; J7030; J7040; U0003; U0005